=== PATIENT | male | born 1990 | race Caucasian/White ===

== ENCOUNTER 2021-06-12 14:28 | Emergency (ER) | payer MEDICAID ==
[~2021-06-12] VITALS: Ht 177.8 cm; Wt 90.7 kg
[2021-06-12] MEDS ORDERED: PROAIR DIGIHAL90 MCG INH (14:43)
[2021-06-12] MEDS ORDERED: ACID CONTROLLER20 MG PO (14:43)
[2021-06-12] MEDS ORDERED: QVAR REDIHALE10.6 GM INH (15:42)
[2021-06-12] MEDS ORDERED: PROAIR HFA8.5 GM INH (15:42)
--- NOTE | 2021-06-13 02:28 | EKG ---
[facility] [address] [facility] [address] [place], [place] [address] Signed Normal sinus rhythm with sinus arrhythmia Nonspecific T wave abnormality Abnormal ECG No previous ECGs available Confirmed by CLEOPATRA GE MD ([id number]) on 06/13/2021 2:28:00 AM Electronically Signed By: CLEOPATRA GE MD 06/13/21 0228 PATIENT NAME: MALKA BELTRAN FUNMILAYO Electrocardiogram DATE OF : 89 PHYSICIAN: CLEOPATRA GE MD REPORT #: [id number] REPORT IS CONFIDENTIAL AND NOT TO BE RELEASED WITHOUT AUTHORIZATION
== END 2021-06-12 15:56 | disposition home or self-care (01) ==
LOC: ED 14:28
DX: J45.909 Unspecified asthma, uncomplicated (principal); Z88.5 Allergy status to narcotic agent; Z79.899 Other long term (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
CPT/HCPCS: 71045; 93005; 93010; 94640; 99285-25

== ENCOUNTER 2021-07-18 13:51 | Emergency (ER) | payer SELFPAY ==
[~2021-07-18] VITALS: Ht 177.8 cm; Wt 99.8 kg
[~2021-07-18 13:51] MED LIST: ACID CONTROLLER20 MG PO; PROAIR DIGIHAL90 MCG INH; PROAIR HFA8.5 GM INH; QVAR REDIHALE10.6 GM INH
[2021-07-18] MEDS ORDERED: VENTOLIN HFA18 GM INH (15:33)
[2021-07-18] MEDS ORDERED: PREDNISONE20 MG PO (15:33)
== END 2021-07-18 15:51 | disposition home or self-care (01) ==
LOC: ED 13:51
DX: J45.901 Unspecified asthma with (acute) exacerbation (principal); F17.200 Nicotine dependence, unspecified, uncomplicated; Z88.5 Allergy status to narcotic agent; Z79.899 Other long term (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
CPT/HCPCS: 71045; 94640; 96374; 99284-25; J2930

== ENCOUNTER 2021-12-13 12:14 | Emergency (ER) | payer OTHER ==
[~2021-12-13] VITALS: Ht 177.8 cm; Wt 101.3 kg
[~2021-12-13 12:14] MED LIST changes: +PREDNISONE20 MG PO; +VENTOLIN HFA18 GM INH
[2021-12-13] MEDS ORDERED: BACTRIM DS TAB1 EACH PO (13:26)
[2021-12-13] MEDS ORDERED: HYDROCODON-ACE1 EA10 PO (13:26)
[2021-12-17] MEDS ORDERED: TRAMADOL HCL100 M2 PO (14:54)
== END 2021-12-13 13:49 | disposition home or self-care (01) ==
LOC: ED 12:14
DX: L05.01 Pilonidal cyst with abscess (principal); J45.909 Unspecified asthma, uncomplicated; F17.200 Nicotine dependence, unspecified, uncomplicated; Z88.5 Allergy status to narcotic agent; Z79.899 Other long term (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
CPT/HCPCS: 10080; 99282-25

== ENCOUNTER 2022-01-10 18:59 | Emergency (ER) | payer OTHER ==
[~2022-01-10] VITALS: Ht 177.8 cm; Wt 101.3 kg
[~2022-01-10 18:59] MED LIST changes: +BACTRIM DS TAB1 EACH PO; +HYDROCODON-ACE1 EA10 PO; +TRAMADOL HCL100 M2 PO
--- OUTSIDE RECORDS SUMMARY | 2022-01-10 19:02 | XMS ---
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 on file CRITERIA MET - - 2 Visits in 30 Days - PDMP CARE PROVIDERS STORM SANDY Nurse Practitioner: Family Current PHONE: Unknown Nikos Eng PA-C Physician Labor Gang Supervisor Current PHONE: Unknown AMANDA WOLFE [facility] Current PHONE: Unknown Care Guidelines exist for the following facilities: [facility] ( 12/08/2016 ) Care History Medical/Surgical 05/11/2017 [facility] Care Recommendation: Reason for establishing care guidelines: this patient has been identified as having at least 5 Emergency Department visits in [facility] in the 12 months immediately preceding the date these guidelines were entered. This care plan reflects only preliminary care guidelines. Providers should exercise clinical judgement when providing care. Contact your emergency department Senior Category Manager for further assistance. Primary Care Physician:Lucsa Figueroa. Please contact pts PCP and/or specialty providers for additional information on chronic conditions. Past Medical History: Asthma, Chronic Kidney Disease, GERD, MRSA Past Surgical History: Renal Biopsy Problem List: Educate patient regarding the proper use of the Emergency Room. Redirect patient to him/her PCP for care that does not require the use of the Emergency Department. Please contact your [facility] Case Management department if further intervention is needed in the care of this patient. It may be appropriate for this patient to seek care at an Urgent Care Center instead of the Emergency Room, please offer this alternate plan to the patient and provide list of Urgent Care Clinics. Substance Abuse: None Mental Health: None Pain/Opioid Agreement: Please use the [facility] BRIELLE Prescription Monitoring Program for specifics related to pts use of narcotics medications. https://secureaccess.[place].gov 05/11/2017 [facility] Care Recommendation: Reason for establishing care guidelines: this patient has been identified as having at least 5 Emergency Department visits in [facility] in the 12 months immediately preceding the date these guidelines were entered. This care plan reflects only preliminary care guidelines. Providers should exercise clinical judgement when providing care. Contact your emergency department Senior Category Manager for further assistance. Primary Care Physician:Lucas Figueroa. Please contact pts PCP and/or specialty providers for additional information on chronic conditions. Past Medical History: Asthma, Chronic Kidney Disease, GERD, MRSA Past Surgical History: Renal Biopsy Problem List: Educate patient regarding the proper use of the Emergency Room. Redirect patient to him/her PCP for care that does not require the use of the Emergency Department. Please contact your [facility] Case Management department if further intervention is needed in the care of this patient. It may be appropriate for this patient to seek care at an Urgent Care Center instead of the Emergency Room, please offer this alternate plan to the patient and provide list of Urgent Care Clinics. Substance Abuse: None Mental Health: None Pain/Opioid Agreement: Please use the [facility] Prescription Monitoring Program for specifics related to pts use of narcotics medications. [email or web address] 05/11/2017 [facility] Care Recommendation: Reason for establishing care guidelines: this patient has been identified as having at least 5 Emergency Department visits in [facility] in the 12 months immediately preceding the date these guidelines were entered. This care plan reflects only preliminary care guidelines. Providers should exercise clinical judgement when providing care. Contact your emergency department Senior Category Manager for further assistance. Primary Care Physician:Lucas Figueroa. Please contact pts PCP and/or specialty providers for additional information on chronic conditions. Past Medical History: Asthma, Chronic Kidney Disease, GERD, MRSA Past Surgical History: Renal Biopsy Problem List: Educate patient regarding the proper use of the Emergency Room. Redirect patient to him/her PCP for care that does not require the use of the Emergency Department. Please contact your [facility] Case Management department if further intervention is needed in the care of this patient. It may be appropriate for this patient to seek care at an Urgent Care Center instead of the Emergency Room, please offer this alternate plan to the patient and provide list of Urgent Care Clinics. Substance Abuse: None Mental Health: None Pain/Opioid Agreement: Please use the [facility] Prescription Monitoring Program for specifics related to pts use of narcotics medications. [email or web address].Medisas.gov E.D. VISIT COUNT (12 MO.) [address] TOTAL 6 NOTE: Visits indicate total known visits. ED/UCC VISIT TRACKING (12 MO.) 01/10/2022 19:00 [facility] [place] TYPE: Emergency COMPLAINT: - HEADACHE, N/V 12/17/2021 13:28 [facility] [place] TYPE: Emergency COMPLAINT: - SKIN PROBLEM DIAGNOSES: - Unspecified asthma, uncomplicated - Other rat exterminator (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 - Allergy status to narcotic agent - Pilonidal cyst with abscess - Nicotine dependence, unspecified, uncomplicated 12/13/2021 12:15 [facility] [place] TYPE: Emergency COMPLAINT: - LOWER BACK PAIN DIAGNOSES: - Nicotine dependence, unspecified, uncomplicated - Other specified disorders of the skin and subcutaneous tissue - Allergy status to narcotic agent - Pilonidal cyst with abscess - Other skilled nursing (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 - Unspecified asthma, uncomplicated 07/18/2021 13:52 [facility] [place] TYPE: Emergency COMPLAINT: - SOB DIAGNOSES: - Other rat exterminator (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 - Allergy status to narcotic agent - Shortness of breath - Nicotine dependence, unspecified, uncomplicated - Unspecified asthma with (acute) exacerbation 06/12/2021 14:29 [facility] [place] TYPE: Emergency COMPLAINT: - DIFFICULTY BREATHING, ACID REFLUX DIAGNOSES: - Shortness of breath - Allergy status to narcotic agent - Other skilled nursing (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 - Unspecified asthma, uncomplicated 05/24/2021 22:20 [facility] TYPE: Emergency COMPLAINT: - Shortness of breath DIAGNOSES: 1. Shortness of breath 2. Procedure and treatment not carried out because of patient's decision for unspecified reasons INPATIENT VISIT TRACKING (12 MO.) No inpatient visits to display in this time frame [id number]
== END 2022-01-10 21:53 | disposition home or self-care (01) ==
LOC: ED 18:59
DX: B34.9 Viral infection, unspecified (principal); J45.909 Unspecified asthma, uncomplicated; F17.200 Nicotine dependence, unspecified, uncomplicated; Z79.899 Other long term (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; Z88.5 Allergy status to narcotic agent; Z20.822 Contact with and (suspected) exposure to COVID-19
CPT/HCPCS: 99284; U0003

== ENCOUNTER 2022-03-22 15:43 | Emergency (ER) | payer OTHER ==
[~2022-03-22] VITALS: Ht 177.8 cm; Wt 99.9 kg
== END 2022-03-22 17:13 | disposition home or self-care (01) ==
LOC: ED 15:43
DX: M72.2 Plantar fascial fibromatosis (principal); J45.909 Unspecified asthma, uncomplicated; Z88.5 Allergy status to narcotic agent; F17.200 Nicotine dependence, unspecified, uncomplicated; Z79.899 Other long term (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
CPT/HCPCS: 99283

== ENCOUNTER 2022-04-06 01:19 | Emergency (ER) | payer OTHER ==
[~2022-04-06] VITALS: Ht 177.8 cm; Wt 94.4 kg
--- OUTSIDE RECORDS SUMMARY | 2022-04-06 01:22 | XMS ---
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 Security Events currently on file CRITERIA MET - [facility] - 2 Visits in 30 Days CARE PROVIDERS STORM SANDY Nurse Practitioner: Family Current PHONE: Unknown Nikos Eng PA-C Physician Pastrycook'S Assistant Current PHONE: Unknown AMANDA WOLFE [facility] Current PHONE: Unknown Care Guidelines exist for the following facilities: [facility] ( 12/08/2016 ) Care History Medical/Surgical 05/11/2017 [facility] Care Recommendation: Reason for establishing care guidelines: this patient has been identified as having at least 5 Emergency Department visits in [facility] in the 12 months immediately preceding the date these guidelines were entered. This care plan reflects only preliminary care guidelines. Providers should exercise clinical judgement when providing care. Contact your emergency department Director Of Federal Sales for further assistance. Primary Care Physician:Lucas Figueroa. [...] of the Emergency Department. Please contact your [facility] Case Management department if further intervention is needed in the care of this patient. It may be appropriate for this patient to seek care at an Urgent Care Center instead of the Emergency Room, please offer this alternate plan to the patient and provide list of Urgent Care Clinics. Substance Abuse: None Mental Health: None Pain/Opioid Agreement: Please use the [facility] BRIELLE Prescription Monitoring Program for specifics related to pts use of narcotics medications. https://secureaccess.[place].gov 05/11/2017 [facility] Care Recommendation: Reason for establishing care guidelines: this patient has been identified as having at least 5 Emergency Department visits in [facility] in the 12 months immediately preceding the date these guidelines were entered. This care plan reflects only preliminary care guidelines. Providers should exercise clinical judgement when providing care. Contact your emergency department Director Of Federal Sales for further assistance. Primary Care Physician:Lucas Figueroa. [...] the Emergency Department. Please contact your [facility] Case Management department if further intervention is needed in the care of this patient. It may be appropriate for this patient to seek care at an Urgent Care Center instead of the Emergency Room, please offer this alternate plan to the patient and provide list of Urgent Care Clinics. Substance Abuse: None Mental Health: None Pain/Opioid Agreement: Please use the [facility] Prescription Monitoring Program for specifics related to pts use of narcotics medications. [email or web address] [email or web address] [email or web address].[email or web address] Technologies 05/11/2017 [facility] Care Recommendation: Reason for establishing care guidelines: this patient has been identified as having at least 5 Emergency Department visits in [facility] in the 12 months immediately preceding the date these guidelines were entered. This care plan reflects only preliminary care guidelines. Providers should exercise clinical judgement when providing care. Contact your emergency department Director Of Federal Sales for further assistance. Primary Care Physician:Lucas Figueroa. [...] the Emergency Department. Please contact your [facility] Case Management department if further intervention is needed in the care of this patient. It may be appropriate for this patient to seek care at an Urgent Care Center instead of the Emergency Room, please offer this alternate plan to the patient and provide list of Urgent Care Clinics. Substance Abuse: None Mental Health: None Pain/Opioid Agreement: Please use the [facility] Prescription Monitoring Program for specifics related to pts use of narcotics medications. [email or web address]://TC [email or web address] Cream.Lockbox.gov E.D. VISIT COUNT (12 MO.) [address] [facility] NOTE: Visits indicate total known visits. ED/UCC VISIT TRACKING (12 MO.) 04/06/2022 01:20 [facility] [place] TYPE: Emergency COMPLAINT: - BACK PAIN 03/22/2022 15:45 [facility] [place] TYPE: Emergency COMPLAINT: - BOTTOMS OF BOTH FEET HURT, DIZZY, NAUSEA DIAGNOSES: - Plantar fascial fibromatosis - Pain in right foot - Nicotine dependence, unspecified, uncomplicated - Allergy status to narcotic agent - Unspecified asthma, uncomplicated - Other vermin exterminator (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 01/10/2022 19:00 [facility] [place] TYPE: Emergency COMPLAINT: - HEADACHE, N/V DIAGNOSES: - Nicotine dependence, unspecified, uncomplicated - Unspecified asthma, uncomplicated - Headache, unspecified - Allergy status to narcotic agent - Contact with and (suspected) exposure to COVID-19 - Other custodial (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 - Viral infection, unspecified 12/17/2021 13:28 [facility] [place] TYPE: Emergency COMPLAINT: - SKIN PROBLEM DIAGNOSES: - Unspecified asthma, uncomplicated - Other vermin exterminator (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 - Allergy status to narcotic agent - Pilonidal cyst with abscess - Nicotine dependence, unspecified, uncomplicated 12/13/2021 12:15 [facility] [place] TYPE: Emergency COMPLAINT: - LOWER BACK PAIN DIAGNOSES: - Nicotine dependence, unspecified, uncomplicated - Other specified disorders of the skin and subcutaneous tissue - Allergy status to narcotic agent - Pilonidal cyst with abscess - Other vermin exterminator (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 - Unspecified asthma, uncomplicated 07/18/2021 13:52 [facility] [place] TYPE: Emergency COMPLAINT: - SOB DIAGNOSES: - Other vermin exterminator (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 - Allergy status to narcotic agent - Shortness of breath - Nicotine dependence, unspecified, uncomplicated - Unspecified asthma with (acute) exacerbation 06/12/2021 14:29 [facility] TYPE: Emergency COMPLAINT: - DIFFICULTY BREATHING, ACID REFLUX DIAGNOSES: - Shortness of breath - Allergy status to narcotic agent - Other custodial (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 - Unspecified asthma, uncomplicated 05/24/2021 22:20 [facility] TYPE: Emergency COMPLAINT: - Shortness of breath DIAGNOSES: 1. Shortness of breath 2. Procedure and treatment not carried out because of patient's decision for unspecified reasons INPATIENT VISIT TRACKING (12 MO.) No inpatient visits to display in this time frame [id number]
[2022-04-06] MEDS ORDERED: ULTRAM50 MG PO (01:38)
[2022-04-06] MEDS ORDERED: AMOX TR-K CLV1 EAC1 PO (01:38)
== END 2022-04-06 01:45 | disposition home or self-care (01) ==
LOC: ED 01:19
DX: L05.01 Pilonidal cyst with abscess (principal); J45.909 Unspecified asthma, uncomplicated; F17.200 Nicotine dependence, unspecified, uncomplicated; Z88.5 Allergy status to narcotic agent; Z79.899 Other long term (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
CPT/HCPCS: 99282; A9270

== ENCOUNTER 2022-05-09 14:09 | Emergency (ER) | payer OTHER ==
[~2022-05-09] VITALS: Ht 177.8 cm; Wt 94.3 kg
[~2022-05-09 14:09] MED LIST changes: +AMOX TR-K CLV1 EAC1 PO; +ULTRAM50 MG PO
== END 2022-05-09 15:53 | disposition home or self-care (01) ==
LOC: ED 14:09
DX: S61.211A Laceration without foreign body of left index finger without damage to nail, initial encounter (principal); W26.9XXA Contact with unspecified sharp object(s), initial encounter; Y99.0 Civilian activity done for income or pay; J45.909 Unspecified asthma, uncomplicated; F17.200 Nicotine dependence, unspecified, uncomplicated; Z88.5 Allergy status to narcotic agent; Z79.899 Other long term (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
CPT/HCPCS: 99282

== ENCOUNTER 2022-05-11 20:59 | Emergency (ER) | payer OTHER ==
[~2022-05-11] VITALS: Ht 177.8 cm; Wt 94.4 kg
[2022-05-11] MEDS ORDERED: AMOX TR-K CLV1 EAC1 PO (23:34)
== END 2022-05-12 | disposition home or self-care (01) ==
LOC: ED 20:59
DX: Z48.00 Encounter for change or removal of nonsurgical wound dressing (principal); F17.200 Nicotine dependence, unspecified, uncomplicated; Z88.5 Allergy status to narcotic agent; Z79.899 Other long term (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
CPT/HCPCS: 36415; 73140; 85025; 85651; 86140; J0690

== ENCOUNTER 2022-08-21 20:47 | Emergency (ER) | payer OTHER ==
[~2022-08-21] VITALS: Ht 177.8 cm; Wt 90.7 kg
--- OUTSIDE RECORDS SUMMARY | 2022-08-21 20:50 | XMS ---
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 Security Events currently on file CRITERIA MET - PDMP CARE PROVIDERS STORM SANDY Nurse Practitioner: Family Current PHONE: Unknown Nikos Eng PA-C Physician Group Managing Director Current PHONE: Unknown AMANDA WOLFE [facility] Current PHONE: Unknown Care Guidelines exist for the following facilities: [facility] ( 12/08/2016 ) Care History Medical/Surgical 05/11/2017 [facility] Care Recommendation: Reason for establishing care guidelines: this patient has been identified as having at least 5 Emergency Department visits in [facility] in the 12 months immediately preceding the date these guidelines were entered. This care plan reflects only preliminary care guidelines. Providers should exercise clinical judgement when providing care. Contact your emergency department Convention Manager for further assistance. Primary Care Physician:Lucas [...] of the Emergency Department. Please contact your [facility] Case Management department if further intervention is needed in the care of this patient. It may be appropriate for this patient to seek care at an Urgent Care Center instead of the Emergency Room, please offer this alternate plan to the patient and provide list of Urgent Care Clinics. Substance Abuse: None Mental Health: None Pain/Opioid Agreement: Please use the [facility] BRIELLE Prescription Monitoring Program for specifics related to pts use of narcotics medications. https://secureaccess.or.gov 05/11/2017 [facility] Care Recommendation: Reason for establishing care guidelines: this patient has been identified as having at least 5 Emergency Department visits in [facility] in the 12 months immediately preceding the date these guidelines were entered. This care plan reflects only preliminary care guidelines. Providers should exercise clinical judgement when providing care. Contact your emergency department Convention Manager for further assistance. Primary Care Physician:Lucas [...] of the Emergency Department. Please contact your [facility] Case Management department if further intervention is needed in the care of this patient. It may be appropriate for this patient to seek care at an Urgent Care Center instead of the Emergency Room, please offer this alternate plan to the patient and provide list of Urgent Care Clinics. Substance Abuse: None Mental Health: None Pain/Opioid Agreement: Please use the [facility] Prescription Monitoring Program for specifics related to pts use of narcotics medications. [email or web address] Fans 05/11/2017 [facility] Care Recommendation: Reason for establishing care guidelines: this patient has been identified as having at least 5 Emergency Department visits in [facility] in the 12 months immediately preceding the date these guidelines were entered. This care plan reflects only preliminary care guidelines. Providers should exercise clinical judgement when providing care. Contact your emergency department Convention Manager for further assistance. Primary Care Physician:Lucas [...] of the Emergency Department. Please contact your [facility] Case Management department if further intervention is needed in the care of this patient. It may be appropriate for this patient to seek care at an Urgent Care Center instead of the Emergency Room, please offer this alternate plan to the patient and provide list of Urgent Care Clinics. Substance Abuse: None Mental Health: None Pain/Opioid Agreement: Please use the [facility] Prescription Monitoring Program for specifics related to pts use of narcotics medications. [email or web address].gov E.D. VISIT COUNT (12 MO.) [address] [facility] [place] [place] TOTAL 8 NOTE: Visits indicate total known visits. ED/UCC VISIT TRACKING (12 MO.) 08/21/2022 20:48 [facility] [place] TYPE: Emergency COMPLAINT: - BODY ACHES, FLU SYMPTOMS 05/11/2022 20:59 [facility] [place] TYPE: Emergency COMPLAINT: - WOUND CARE DIAGNOSES: - Allergy status to narcotic agent - Other long wall shear operator (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 - Nicotine dependence, unspecified, uncomplicated - Encounter for change or removal of nonsurgical wound dressing 05/09/2022 14:09 [facility] [place] TYPE: Emergency COMPLAINT: - L INDEX FINGER LACERATION DIAGNOSES: - Contact with unspecified sharp object(s), initial encounter - Other snf (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 - Nicotine dependence, unspecified, uncomplicated - Civilian activity done for income or pay - Unspecified asthma, uncomplicated - Allergy status to narcotic agent - Laceration without foreign body of left index finger without damage to nail, initial encounter 04/06/2022 01:20 [facility] [place] TYPE: Emergency COMPLAINT: - BACK PAIN DIAGNOSES: - Unspecified asthma, uncomplicated - Pilonidal cyst with abscess - Nicotine dependence, unspecified, uncomplicated - Other long wall shear operator (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 - Allergy status to narcotic agent 03/22/2022 15:45 [facility] [place] TYPE: Emergency COMPLAINT: - BOTTOMS OF BOTH FEET HURT, DIZZY, NAUSEA DIAGNOSES: - Other snf (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 - Allergy status to narcotic agent - Pain in right foot - Unspecified asthma, uncomplicated - Nicotine dependence, unspecified, uncomplicated - Plantar fascial fibromatosis 01/10/2022 19:00 [facility] [place] TYPE: Emergency COMPLAINT: - HEADACHE, N/V DIAGNOSES: - Other snf (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 - Allergy status to narcotic agent - Unspecified asthma, uncomplicated - Viral infection, unspecified - Contact with and (suspected) exposure to COVID-19 - Headache, unspecified - Nicotine dependence, unspecified, uncomplicated 12/17/2021 13:28 [facility] [place] TYPE: Emergency COMPLAINT: - SKIN PROBLEM DIAGNOSES: - Pilonidal cyst with abscess - Other snf (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 - Nicotine dependence, unspecified, uncomplicated - Allergy status to narcotic agent - Unspecified asthma, uncomplicated 12/13/2021 12:15 [facility] [place] TYPE: Emergency COMPLAINT: - LOWER BACK PAIN DIAGNOSES: - Unspecified asthma, uncomplicated - Pilonidal cyst with abscess - Other specified disorders of the skin and subcutaneous tissue - Other snf (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 - Allergy status to narcotic agent - Nicotine dependence, unspecified, uncomplicated INPATIENT VISIT TRACKING (12 MO.) No inpatient visits to display in this time frame [id number]
[2022-08-21] MEDS ORDERED: FLUTICASONE-SA1 EAC5 (20:58)
[2022-08-21] MEDS ORDERED: CYCLOBENZAPRINE10 MG PO (22:05)
[2022-08-21] MEDS ORDERED: BENZONATATE100 MG PO (22:05)
== END 2022-08-21 22:29 | disposition home or self-care (01) ==
LOC: ED 20:47
DX: B34.9 Viral infection, unspecified (principal); J45.909 Unspecified asthma, uncomplicated; F17.200 Nicotine dependence, unspecified, uncomplicated; Z20.822 Contact with and (suspected) exposure to COVID-19; Z88.5 Allergy status to narcotic agent; Z88.6 Allergy status to analgesic agent; Z79.899 Other long term (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
CPT/HCPCS: 87502; 96372; 99283; A9270; C9803; J1885; U0003

== ENCOUNTER 2022-09-28 22:16 | Emergency (ER) | payer OTHER ==
[~2022-09-28] VITALS: Ht 177.8 cm; Wt 97.0 kg
[~2022-09-28 22:16] MED LIST changes: +BENZONATATE100 MG PO; +CYCLOBENZAPRINE10 MG PO; +FLUTICASONE-SA1 EAC5
--- OUTSIDE RECORDS SUMMARY | 2022-09-28 22:20 | XMS ---
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 ( 12/08/2016 ) Care History Medical/Surgical 05/11/2017 [facility] Care Recommendation: Reason for establishing care guidelines: this patient has been identified as having at least 5 Emergency Department visits in [facility] in the 12 months immediately preceding the date these guidelines were entered. This care plan reflects only preliminary care guidelines. Providers should exercise clinical judgement when providing care. Contact your emergency department Registered Health Nurse for further assistance. Primary Care Physician:Lucas Figueroa. [...] of the Emergency Department. Please contact your [facility] Case Management department if further intervention is needed in the care of this patient. It may be appropriate for this patient to seek care at an Urgent Care Center instead of the Emergency Room, please offer this alternate plan to the patient and provide list of Urgent Care Clinics. Substance Abuse: None Mental Health: None Pain/Opioid Agreement: Please use the [facility] Prescription Monitoring Program for specifics related to pts use of narcotics medications. https://secureaccess.[place].gov 05/11/2017 [facility] Care Recommendation: Reason for establishing care guidelines: this patient has been identified as having at least 5 Emergency Department visits in [facility] in the 12 months immediately preceding the date these guidelines were entered. This care plan reflects only preliminary care guidelines. Providers should exercise clinical judgement when providing care. Contact your emergency department Registered Health Nurse for further assistance. Primary Care Physician:Lucas Figueroa. [...] of the Emergency Department. Please contact your [facility] Case Management department if further intervention is needed in the care of this patient. It may be appropriate for this patient to seek care at an Urgent Care Center instead of the Emergency Room, please offer this alternate plan to the patient and provide list of Urgent Care Clinics. Substance Abuse: None Mental Health: None Pain/Opioid Agreement: Please use the [facility] Prescription Monitoring Program for specifics related to pts use of narcotics medications. https://Flextrip.[employer]mex.[employer] 05/11/2017 [facility] Care Recommendation: Reason for establishing care guidelines: this patient has been identified as having at least 5 Emergency Department visits in [facility] in the 12 months immediately preceding the date these guidelines were entered. This care plan reflects only preliminary care guidelines. Providers should exercise clinical judgement when providing care. Contact your emergency department Registered Health Nurse for further assistance. Primary Care Physician:Lucas Figueroa. [...] of the Emergency Department. Please contact your [facility] Case Management department if further intervention is needed in the care of this patient. It may be appropriate for this patient to seek care at an Urgent Care Center instead of the Emergency Room, please offer this alternate plan to the patient and provide list of Urgent Care Clinics. Substance Abuse: None Mental Health: None Pain/Opioid Agreement: Please use the [facility] Prescription Monitoring Program for specifics related to pts use of narcotics medications. https://Flextrip.Satmex.gov E.D. VISIT COUNT (12 MO.) Nelson Guerin TOTAL 10 NOTE: Visits indicate total known visits. ED/UCC VISIT TRACKING (12 MO.) 09/28/2022 22:17 [facility] TYPE: Emergency COMPLAINT: - EAR PAIN 09/28/2022 12:07 [facility] TYPE: Emergency COMPLAINT: - EAR PAIN/PROBLEM 08/21/2022 20:48 [facility] TYPE: Emergency COMPLAINT: - BODY ACHES, FLU SYMPTOMS DIAGNOSES: - Allergy status to analgesic agent - Other nursing home (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 - Allergy status to narcotic agent - Viral infection, unspecified - Nicotine dependence, unspecified, uncomplicated - Contact with and (suspected) exposure to COVID-19 - Acute pharyngitis, unspecified - Unspecified asthma, uncomplicated 05/11/2022 20:59 [facility] TYPE: Emergency COMPLAINT: - WOUND CARE DIAGNOSES: - Other terminal operations 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 (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 - Nicotine dependence, unspecified, uncomplicated - Encounter for change or removal of nonsurgical wound dressing - Allergy status to narcotic agent 05/09/2022 14:09 [facility] TYPE: Emergency COMPLAINT: - L INDEX FINGER LACERATION DIAGNOSES: - Nicotine dependence, unspecified, uncomplicated - Civilian activity done for income or pay - Unspecified asthma, uncomplicated - Allergy status to narcotic agent - Laceration without foreign body of left index finger without damage to nail, initial encounter - Contact with unspecified sharp object(s), initial encounter - Other nursing home (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 04/06/2022 01:20 [facility] TYPE: Emergency COMPLAINT: - BACK PAIN DIAGNOSES: - Pilonidal cyst with abscess - Nicotine dependence, unspecified, uncomplicated - Other nursing home (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 - Allergy status to narcotic agent - Unspecified asthma, uncomplicated 03/22/2022 15:45 [facility] TYPE: Emergency COMPLAINT: - BOTTOMS OF BOTH FEET HURT, DIZZY, NAUSEA DIAGNOSES: - Pain in right foot - Unspecified asthma, uncomplicated - Nicotine dependence, unspecified, uncomplicated - Plantar fascial fibromatosis - Other nursing home (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 - Allergy status to narcotic agent 01/10/2022 19:00 [facility] TYPE: Emergency COMPLAINT: - HEADACHE, N/V DIAGNOSES: - Unspecified asthma, uncomplicated - Viral infection, unspecified - Contact with and (suspected) exposure to COVID-19 - Headache, unspecified - Nicotine dependence, unspecified, uncomplicated - Other nursing home (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 - Allergy status to narcotic agent 12/17/2021 13:28 [facility] TYPE: Emergency COMPLAINT: - SKIN PROBLEM DIAGNOSES: - Other terminal operations supervisor (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 - Nicotine dependence, unspecified, uncomplicated - Allergy status to narcotic agent - Unspecified asthma, uncomplicated - Pilonidal cyst with abscess 12/13/2021 12:[address] [facility] [place] TYPE: Emergency COMPLAINT: - LOWER BACK PAIN DIAGNOSES: - Other specified disorders of the skin and subcutaneous tissue - Other terminal operations supervisor (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 - Allergy status to narcotic agent - Nicotine dependence, unspecified, uncomplicated - Unspecified asthma, uncomplicated - Pilonidal cyst with abscess INPATIENT VISIT TRACKING (12 MO.) No inpatient visits to display in this time frame [email or web address]
[2022-09-28] MEDS ORDERED: FLONASE ALLERG9.9 ML NAS (23:06)
== END 2022-09-28 23:14 | disposition home or self-care (01) ==
LOC: ED 22:16
DX: H68.013 Acute Eustachian salpingitis, bilateral (principal); J45.909 Unspecified asthma, uncomplicated; F17.200 Nicotine dependence, unspecified, uncomplicated; Z88.5 Allergy status to narcotic agent; Z79.899 Other long term (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
CPT/HCPCS: 99282

== ENCOUNTER 2023-02-20 17:29 | Emergency (ER) | payer OTHER ==
[~2023-02-20] VITALS: Ht 177.8 cm; Wt 93.2 kg
[~2023-02-20 17:29] MED LIST changes: +FLONASE ALLERG9.9 ML NAS
[2023-02-20] MEDS ORDERED: METRONIDAZOLE500 MG PO (19:16)
[2023-02-20] MEDS ORDERED: CEPHALEXIN500 MG PO (19:16)
[2023-02-20 19:45] VITALS: BP 127/87
== END 2023-02-20 19:47 | disposition home or self-care (01) ==
LOC: ED 17:29
DX: L05.91 Pilonidal cyst without abscess (principal); J45.909 Unspecified asthma, uncomplicated; F17.200 Nicotine dependence, unspecified, uncomplicated; Z88.5 Allergy status to narcotic agent; Z79.899 Other long term (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
CPT/HCPCS: 99283

== ENCOUNTER 2023-04-29 20:50 | Emergency (ER) | payer OTHER ==
[~2023-04-29] VITALS: Ht 177.8 cm; Wt 89.4 kg
--- OUTSIDE RECORDS SUMMARY | ~2023-04-29 | XMS | Continuity of Care Document ---
Demographics + + + | Address | [address] | | | [place] [address] | + + + | Preferred Language | Unknown | + + + | Marital Status | Never | + + + | Druze Affiliation | Unknown | + + + | Race | White | + + + | Ethnic Group | Not or | + + + Author + + + | Author | [facility] | + + + | Organization | [facility] | + + + | Address | [address] | | | [place] [address] | + + + | Phone | | + + + Care Team Providers + + + + | Care Overedger Name | Role | Phone | + + + + Unavailable | Unavailable | + + + + Unavailable | Unavailable | + + + + Unavailable | Unavailable | + + + + Unavailable | Unavailable | + + + + Unavailable | Unavailable | + + + + Unavailable | Unavailable | + + + + Allergies and Intolerances + + + + + + | date | description | facility | reaction | severity | + + + + + + | (no date) | Hydromorphone | [facility] | (no reaction) | (no severity) | [facility] | | | + + + + + + | (no date) | hydromorphone | [facility] | (no reaction) | (no severity) | | [facility] | | | + + + + + + | (no date) | Morphine | [facility] | (no reaction) | (no severity) | | [facility] | | | + + + + + + | (no date) | Hydromorphone | [facility] | (no reaction) | (no severity) | | [facility] | | | + + + + + + | (no date) | Hallucinations | [facility] | (no reaction) | (no severity) | | [facility] | | | + + + + + + | (no date) | Morphine | [facility] | (no reaction) | (no severity) | | [facility] | | | + + + + + + | (no date) | morphine | [facility] | (no reaction) | (no severity) | | | [facility] | | | + + + + + + | (no date) | Morphine | [facility] | (no reaction) | (no severity) | | [facility] | | | + + + + + + | (no date) | Hydromorphone | [facility] | (no reaction) | (no severity) | | [facility] | | | + + + + + + Encounters No information. Functional Status No information. Immunizations + + + + | date | description | facility | + + + + | 2023-02-20 00:00 | No vaccine administered | [facility] | + + + + Medications + + + + | date | description | facility | + + + + | 2022-08-21 00:00 | Fluticasone | [facility] | | | Propion/Salmeterol | | + + + + | 2022-09-28 00:00 | Fluticasone | [facility] | | | Propion/Salmeterol | | + + + + | 2022-09-28 00:00 | Fluticasone | [facility] | | | Propion/Salmeterol | | + + + + | 2023-02-20 00:00 | Fluticasone | [facility] | | | Propion/Salmeterol | | + + + + | 2023-02-20 00:00 | fluticasone propionate 0.5 | [facility] | | | MG/ACTUAT / salmeterol | | | | 0.05 MG/AC | | + + + + | 2022-09-28 00:00 | FLUTICASONE PROPIONATE | [facility] | + + + + | 2022-08-21 00:00 | BENZONATATE | [facility] | + + + + | 2022-08-21 00:00 | BENZONATATE | [facility] | + + + + | 2022-08-21 00:00 | BENZONATATE | [facility] | + + + + | 2021-06-12 00:00 | Beclomethasone | [facility] | | | Dipropionate | | + + + + | 2021-06-12 00:00 | Beclomethasone | [facility] | | | Dipropionate | | + + + + | 2021-06-12 00:00 | Beclomethasone | [facility] | | | Dipropionate | | + + + + | 2021-06-12 00:00 | Beclomethasone | [facility] | | | Dipropionate | | + + + + | 2021-06-12 00:00 | Breath-Actuated 120 ACTUAT | [facility] | | | beclomethasone | | | | dipropionate 0.04 | | + + + + | 2022-04-18 00:00 | Albuterol Sulfate | [facility] | + + + + | 2022-05-09 00:00 | Albuterol Sulfate | [facility] | + + + + | 2022-08-21 00:00 | Albuterol Sulfate | [facility] | + + + + | 2022-09-28 00:00 | Albuterol Sulfate | [facility] | + + + + | 2022-09-28 00:00 | Albuterol Sulfate | [facility] | + + + + | 2023-02-20 00:00 | Albuterol Sulfate | [facility] | + + + + | 2023-02-20 00:00 | Sensor 200 ACTUAT | [facility] | | | albuterol 0.09 MG/ACTUAT | | | | Dry Powder Inhale | | + + + + | 2023-02-20 00:00 | CEPHALEXIN | [facility] | + + + + | 2023-02-20 00:00 | cephalexin 500 MG Oral | [facility] | | | Capsule | | + + + + | 2022-04-18 00:00 | FAMOTIDINE | [facility] | + + + + | 2022-05-09 00:00 | FAMOTIDINE | [facility] | + + + + | 2022-08-21 00:00 | FAMOTIDINE | [facility] | + + + + | 2022-09-28 00:00 | FAMOTIDINE | [facility] | + + + + | 2022-09-28 00:00 | FAMOTIDINE | [facility] | + + + + | 2023-02-20 00:00 | FAMOTIDINE | [facility] | + + + + | 2023-02-20 00:00 | famotidine 20 MG Oral | [facility] | | | Tablet | | + + + + | 2023-02-20 00:00 | METRONIDAZOLE | [facility] | + + + + | 2023-02-20 00:00 | metronidazole 500 MG Oral | [facility] | | | Tablet | | + + + + | 2021-07-18 00:00 | predniSONE | [facility] | + + + + | 2021-07-18 00:00 | predniSONE | [facility] | + + + + | 2021-07-18 00:00 | predniSONE | [facility] | + + + + | 2021-07-18 00:00 | predniSONE | [facility] | + + + + | 2021-07-18 00:00 | prednisone 20 MG Oral | [facility] | | | Tablet | | + + + + | 2022-04-06 00:00 | AMOXICILLIN/POTASSIUM CLAV | [facility] | | | | | + + + + | 2022-05-11 00:00 | AMOXICILLIN/POTASSIUM CLAV | [facility] | | | | | + + + + | 2022-05-11 00:00 | AMOXICILLIN/POTASSIUM CLAV | [facility] | | | | | + + + + | 2022-05-11 00:00 | AMOXICILLIN/POTASSIUM CLAV | [facility] | | | | | + + + + | 2022-05-11 00:00 | amoxicillin 875 MG / | [facility] | | | clavulanate 125 MG Oral | | | | Tablet | | + + + + | 2022-08-21 00:00 | CYCLOBENZAPRINE HCL | [facility] | + + + + | 2022-08-21 00:00 | CYCLOBENZAPRINE HCL | [facility] | + + + + | 2022-04-06 00:00 | TRAMADOL HCL | [facility] | + + + + | 2022-04-06 00:00 | TRAMADOL HCL | [facility] | + + + + | 2022-04-06 00:00 | TRAMADOL HCL | [facility] | + + + + | 2022-04-06 00:00 | TRAMADOL HCL | [facility] | + + + + | 2022-04-06 00:00 | tramadol hydrochloride 50 | [facility] | | | MG Oral Tablet [Ultram] | | + + + + | 2021-07-18 00:00 | ALBUTEROL SULFATE | [facility] | + + + + | 2021-07-18 00:00 | ALBUTEROL SULFATE | [facility] | + + + + | 2021-07-18 00:00 | ALBUTEROL SULFATE | [facility] | + + + + | 2021-07-18 00:00 | ALBUTEROL SULFATE | [facility] | + + + + | 2021-07-18 00:00 | [id number] ACTUAT | [facility] | | | albuterol 0.09 MG/ACTUAT | | | | Metered Dose I | | + + + + Problems + + + + | date | description | facility | + + + + | 2021-06-12 00:00 | Asthma attack | [facility] | + + + + | 2021-06-12 00:00 | Exacerbation of asthma | [facility] | + + + + | 2021-06-12 00:00 | Exacerbation of asthma | [facility] | + + + + | 2021-06-12 00:00 | Exacerbation of asthma | [facility] | + + + + | 2021-06-12 00:00 | Exacerbation of asthma | [facility] | + + + + | 2021-12-13 00:00 | Pilonidal cyst with | [facility] | | | abscess | | + + + + | 2021-12-13 00:00 | Pilonidal cyst with | [facility] | | | abscess | | + + + + | 2021-12-13 00:00 | Pilonidal cyst with | [facility] | | | abscess | | + + + + | 2021-12-13 00:00 | Pilonidal cyst with | [facility] | | | abscess | | + + + + | 2021-12-17 00:00 | 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 | | + + + + | 2021-12-17 00:00 | 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 | | + + + + | 2021-12-17 00:00 | Pilonidal abscess of | [facility] | | | cleft | | + + + + | 2021-12-17 00:00 | 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 | | + + + + | 2022-01-10 00:00 | Viral syndrome | [facility] | + + + + | 2022-01-10 00:00 | Viral infection | [facility] | + + + + | 2022-01-10 00:00 | Viral infection | [facility] | + + + + | 2022-01-10 00:00 | Viral infection | [facility] | + + + + | 2022-01-10 00:00 | Viral infection | [facility] | + + + + | 2022-03-22 00:00 | Plantar fasciitis | [facility] | + + + + | 2022-03-22 00:00 | Plantar fasciitis | [facility] | + + + + | 2022-03-22 00:00 | Plantar fasciitis | [facility] | + + + + | 2022-03-22 00:00 | Plantar fasciitis | [facility] | + + + + | 2022-05-11 00:00 | Encounter for | [facility] | | | post-traumatic wound check | | + + + + | 2022-05-11 00:00 | Encounter for | [facility] | | | post-traumatic wound check | | + + + + | 2022-05-11 00:00 | Encounter for | [facility] | | | post-traumatic wound check | | + + + + | 2022-09-28 00:00 | Acute salpingitis of | [facility] | | | eustachian tube | | + + + + | 2022-09-28 00:00 | Acute salpingitis of | [facility] | | | eustachian tube | | + + + + | 2022-09-28 00:00 | Patient left without being | [facility] | | | seen | | + + + + | 2022-09-28 00:00 | Patient left without being | [facility] | | | seen | | + + + + | 2022-09-28 22:17 | NICOTINE DEPENDENCE, | [facility] | | | UNSPECIFIED, UNCOMPLICATED | | + + + + | 2022-09-28 22:17 | ACUTE EUSTACHIAN | [facility] | | | SALPINGITIS, BILATERAL | | + + + + | 2022-09-28 22:17 | UNSPECIFIED ASTHMA, | [facility] | | | UNCOMPLICATED | | + + + + | 2022-09-28 22:17 | NAUSEA | [facility] | + + + + | 2022-09-28 22:17 | OTHER SHELTER (CURRENT) | [facility] | | | DRUG THERAPY | | + + + + | 2022-09-28 22:17 | ALLERGY STATUS TO NARCOTIC | [facility] | | | AGENT STATUS | | + + + + | 2023-02-20 00:00 | Sacrococcygeal pilonidal | [facility] | | | cyst | | + + + + | 2023-02-20 00:00 | Sacrococcygeal pilonidal | [facility] | | | cyst | | + + + + Procedures No information. Results/Labs +--------+--------+ +---------+--------+---------+ | test | date | facility | value | unit | notes | +--------+--------+ +---------+--------+---------+ + + | Result panel 1 | + + + + + + + + + | | 2022-01-10 | [facility] | NEGATIVE | (missing) | (missing) | | (unavailable | 20:49 [facility] | | | | + + + + + + + + + | Result panel 2 | + + + + + + + + + | | 2022-01-10 | [facility] | NEGATIVE | (missing) | (missing) | | (unavailable | 20:49 | [facility] | | | | + + + + + + + + + | Result panel 3 | + + + + + + + + + | | 2022-01-10 | [facility] | NEGATIVE | (missing) | (missing) | | (unavailable | 20:49 [facility] | | | | + + + + + + + + + | Result panel 4 | + + + + + + + + + | | 2022-01-10 | [facility] | NEGATIVE | (missing) | (missing) | | (unavailable | 20:49 [facility] | | | | + + + + + + + + + | Result panel 5 | + + + + + + + + + | | 2022-01-10 | [facility] | NEGATIVE | (missing) | (missing) | | (unavailable | 20:49 [facility] | | | | + + + + + + + + + | Result panel 6 | + + + + + + + + + | | 2022-01-10 | [facility] | NEGATIVE | (missing) | (missing) | | (unavailable | 20:49 [facility] | | | | + + + + + + + + + | Result panel 7 | + + + + + + + + + | | 2022-01-10 | [facility] | NEGATIVE | (missing) | (missing) | | (unavailable | 20:49 [facility] | | | | + + + + + + + + + | Result panel 8 | + + + + + + + + + | | 2022-01-10 | [facility] | NEGATIVE | (missing) | (missing) | | (unavailable | 20:49 [facility] | | | | + + + + + + + + + | Result panel 9 | + + + + + + + + + | | 2022-08-21 | [facility] | NEGATIVE | (missing) | (missing) | | (unavailable | 21:10 | [facility] | | | | + + + + + + + + + | Result panel 10 | + + + + + + + + + | | 2022-08-21 | [facility] | NEGATIVE | (missing) | (missing) | | (unavailable | 21:10 [facility] | | | | + + + + + + + + + | Result panel 11 | + + + + + + + + + | | 2022-08-21 | [facility] | NEGATIVE | (missing) | (missing) | | (unavailable | 21:10 [facility] | | | | + + + + + + + + + | Result panel 12 | + + + + + + + + + | | 2022-08-21 | [facility] | NEGATIVE | (missing) | (missing) | | (unavailable | 21:10 | [facility] | | | | + + + + + + + Social History + + + + | date | description | facility | + + + + | 2023-02-20 00:00 | [facility] | + + + + Vital Signs + + + +---------+ | date | measurement | value | units | + + + +---------+ | 2021-12-13 00:00 | BMI | 32.0 | kg/m2 | + + + +---------+ | 2021-12-13 00:00 | BP_diastolic | 53 | mmHg | + + + +---------+ | 2021-12-13 00:00 | BP_systolic | 101 | mmHg | + + + +---------+ | 2021-12-13 00:00 | heart_rate | 90 | /min | + + + +---------+ | 2021-12-13 00:00 | height_metric | 177.8 | cm | + + + +---------+ | 2021-12-13 00:00 | height_standard | 70 | in | + + + +---------+ | 2021-12-13 00:00 | o2_saturation | 97 | % | + + + +---------+ | 2021-12-13 00:00 | respiration_rate | 16 | /min | + + + +---------+ | 2021-12-13 00:00 | temperature_metric | 36.56 | C | | | | | | + + + +---------+ | 2021-12-13 00:00 | | 97.8 | F | | | temperature_standar | | | | | d | | | + + + +---------+ | 2021-12-13 00:00 | weight_metric | 101.3 | kg | + + + +---------+ | 2021-12-13 00:00 | weight_standard | 223.33 | lb | + + + +---------+ | 2021-12-17 00:00 | BMI | 32.0 | kg/m2 | + + + +---------+ | 2021-12-17 00:00 | BP_diastolic | 82 | mmHg | + + + +---------+ | 2021-12-17 00:00 | BP_systolic | 126 | mmHg | + + + +---------+ | 2021-12-17 00:00 | heart_rate | 69 | /min | + + + +---------+ | 2021-12-17 00:00 | height_metric | 177.8 | cm | + + + +---------+ | 2021-12-17 00:00 | height_standard | 70 | in | + + + +---------+ | 2021-12-17 00:00 | o2_saturation | 98 | % | + + + +---------+ | 2021-12-17 00:00 | respiration_rate | 16 | /min | + + + +---------+ | 2021-12-17 00:00 | temperature_metric | 36.94 | C | | | | | | + + + +---------+ | 2021-12-17 00:00 | | 98.5 | F | | | temperature_standar | | | | | d | | | + + + +---------+ | 2021-12-17 00:00 | weight_metric | 101.29 | kg | + + + +---------+ | 2021-12-17 00:00 | weight_standard | 223.31 | lb | + + + +---------+ | 2022-01-10 00:00 | BMI | 32.0 | kg/m2 | + + + +---------+ | 2022-01-10 00:00 | BP_diastolic | 91 | mmHg | + + + +---------+ | 2022-01-10 00:00 | BP_systolic | 143 | mmHg | + + + +---------+ | 2022-01-10 00:00 | heart_rate | 81 | /min | + + + +---------+ | 2022-01-10 00:00 | height_metric | 177.8 | cm | + + + +---------+ | 2022-01-10 00:00 | height_standard | 70 | in | + + + +---------+ | 2022-01-10 00:00 | o2_saturation | 100 | % | + + + +---------+ | 2022-01-10 00:00 | respiration_rate | 16 | /min | + + + +---------+ | 2022-01-10 00:00 | temperature_metric | 37.06 | C | | | | | | + + + +---------+ | 2022-01-10 00:00 | | 98.7 | F | | | temperature_standar | | | | | d | | | + + + +---------+ | 2022-01-10 00:00 | weight_metric | 101.29 | kg | + + + +---------+ | 2022-01-10 00:00 | weight_standard | 223.31 | lb | + + + +---------+ | 2022-03-22 00:00 | BMI | 31.6 | kg/m2 | + + + +---------+ | 2022-03-22 00:00 | BP_diastolic | 79 | mmHg | + + + +---------+ | 2022-03-22 00:00 | BP_systolic | 128 | mmHg | + + + +---------+ | 2022-03-22 00:00 | heart_rate | 63 | /min | + + + +---------+ | 2022-03-22 00:00 | height_metric | 177.8 | cm | + + + +---------+ | 2022-03-22 00:00 | height_standard | 70 | in | + + + +---------+ | 2022-03-22 00:00 | o2_saturation | 98 | % | + + + +---------+ | 2022-03-22 00:00 | respiration_rate | 16 | /min | + + + +---------+ | 2022-03-22 00:00 | temperature_metric | 36.67 | C | | | | | | + + + +---------+ | 2022-03-22 00:00 | | 98 | F | | | temperature_standar | | | | | d | | | + + + +---------+ | 2022-03-22 00:00 | weight_metric | 99.93 | kg | + + + +---------+ | 2022-03-22 00:00 | weight_standard | 220.31 | lb | + + + +---------+ | 2022-04-06 00:00 | BMI | 29.9 | kg/m2 | + + + +---------+ | 2022-04-06 00:00 | BP_diastolic | 88 | mmHg | + + + +---------+ | 2022-04-06 00:00 | BP_systolic | 137 | mmHg | + + + +---------+ | 2022-04-06 00:00 | heart_rate | 95 | /min | + + + +---------+ | 2022-04-06 00:00 | height_metric | 177.8 | cm | + + + +---------+ | 2022-04-06 00:00 | height_standard | 70 | in | + + + +---------+ | 2022-04-06 00:00 | o2_saturation | 98 | % | + + + +---------+ | 2022-04-06 00:00 | respiration_rate | 16 | /min | + + + +---------+ | 2022-04-06 00:00 | temperature_metric | 36.72 | C | | | | | | + + + +---------+ | 2022-04-06 00:00 | | 98.1 | F | | | temperature_standar | | | | | d | | | + + + +---------+ | 2022-04-06 00:00 | weight_metric | 94.4 | kg | + + + +---------+ | 2022-04-06 00:00 | weight_standard | 208.12 | lb | + + + +---------+ | 2022-05-09 00:00 | BMI | 29.8 | kg/m2 | + + + +---------+ | 2022-05-09 00:00 | BP_diastolic | 78 | mmHg | + + + +---------+ | 2022-05-09 00:00 | BP_systolic | 148 | mmHg | + + + +---------+ | 2022-05-09 00:00 | heart_rate | 68 | /min | + + + +---------+ | 2022-05-09 00:00 | height_metric | 177.8 | cm | + + + +---------+ | 2022-05-09 00:00 | height_standard | 70 | in | + + + +---------+ | 2022-05-09 00:00 | o2_saturation | 99 | % | + + + +---------+ | 2022-05-09 00:00 | respiration_rate | 17 | /min | + + + +---------+ | 2022-05-09 00:00 | temperature_metric | 36.67 | C | | | | | | + + + +---------+ | 2022-05-09 00:00 | | 98 | F | | | temperature_standar | | | | | d | | | + + + +---------+ | 2022-05-09 00:00 | weight_metric | 94.35 | kg | + + + +---------+ | 2022-05-09 00:00 | weight_standard | 208 | lb | + + + +---------+ | 2022-08-21 00:00 | BMI | 28.7 | kg/m2 | + + + +---------+ | 2022-08-21 00:00 | BP_diastolic | 89 | mmHg | + + + +---------+ | 2022-08-21 00:00 | BP_systolic | 134 | mmHg | + + + +---------+ | 2022-08-21 00:00 | heart_rate | 102 | /min | + + + +---------+ | 2022-08-21 00:00 | height_metric | 177.8 | cm | + + + +---------+ | 2022-08-21 00:00 | height_standard | 70 | in | + + + +---------+ | 2022-08-21 00:00 | o2_saturation | 98 | % | + + + +---------+ | 2022-08-21 00:00 | respiration_rate | 20 | /min | + + + +---------+ | 2022-08-21 00:00 | temperature_metric | 37.28 | C | | | | | | + + + +---------+ | 2022-08-21 00:00 | | 99.1 | F | | | temperature_standar | | | | | d | | | + + + +---------+ | 2022-08-21 00:00 | weight_metric | 90.72 | kg | + + + +---------+ | 2022-08-21 00:00 | weight_standard | 200 | lb | + + + +---------+ | 2022-09-28 00:00 | BMI | 28.7 | kg/m2 | + + + +---------+ | 2022-09-28 00:00 | BMI | 30.7 | kg/m2 | + + + +---------+ | 2022-09-28 00:00 | BP_diastolic | 71 | mmHg | + + + +---------+ | 2022-09-28 00:00 | BP_diastolic | 92 | mmHg | + + + +---------+ | 2022-09-28 00:00 | BP_systolic | 131 | mmHg | + + + +---------+ | 2022-09-28 00:00 | BP_systolic | 134 | mmHg | + + + +---------+ | 2022-09-28 00:00 | heart_rate | 81 | /min | + + + +---------+ | 2022-09-28 00:00 | heart_rate | 87 | /min | + + + +---------+ | 2022-09-28 00:00 | height_metric | 177.8 | cm | + + + +---------+ | 2022-09-28 00:00 | height_standard | 70 | in | + + + +---------+ | 2022-09-28 00:00 | o2_saturation | 100 | % | + + + +---------+ | 2022-09-28 00:00 | o2_saturation | 99 | % | + + + +---------+ | 2022-09-28 00:00 | respiration_rate | 20 | /min | + + + +---------+ | 2022-09-28 00:00 | respiration_rate | 71 | /min | + + + +---------+ | 2022-09-28 00:00 | temperature_metric | 36.72 | C | | | | | | + + + +---------+ | 2022-09-28 00:00 | temperature_metric | 37.06 | C | | | | | | + + + +---------+ | 2022-09-28 00:00 | | 98.1 | F | | | temperature_standar | | | | | d | | | + + + +---------+ | 2022-09-28 00:00 | | 98.7 | F | | | temperature_standar | | | | | d | | | + + + +---------+ | 2022-09-28 00:00 | weight_metric | 90.75 | kg | + + + +---------+ | 2022-09-28 00:00 | weight_metric | 97 | kg | + + + +---------+ | 2022-09-28 00:00 | weight_standard | 200.06 | lb | + + + +---------+ | 2022-09-28 00:00 | weight_standard | 200.07 | lb | + + + +---------+ | 2022-09-28 00:00 | weight_standard | 213.85 | lb | + + + +---------+ | 2023-02-20 00:00 | BMI | 29.5 | kg/m2 | + + + +---------+ | 2023-02-20 00:00 | BP_diastolic | 87 | mmHg | + + + +---------+ | 2023-02-20 00:00 | BP_systolic | 127 | mmHg | + + + +---------+ | 2023-02-20 00:00 | heart_rate | 82 | /min | + + + +---------+ | 2023-02-20 00:00 | height_metric | 177.8 | cm | + + + +---------+ | 2023-02-20 00:00 | height_standard | 70 | in | + + + +---------+ | 2023-02-20 00:00 | o2_saturation | 100 | % | + + + +---------+ | 2023-02-20 00:00 | respiration_rate | 16 | /min | + + + +---------+ | 2023-02-20 00:00 | temperature_metric | 36.61 | C | | | | | | + + + +---------+ | 2023-02-20 00:00 | | 97.9 | F | | | temperature_standar | | | | | d | | | + + + +---------+ | 2023-02-20 00:00 | weight_metric | 93.2 | kg | + + + +---------+ | 2023-02-20 00:00 | weight_standard | 205.47 | lb | + + + +---------+"
--- OUTSIDE RECORDS SUMMARY | ~2023-04-29 | XMS | Continuity of Care Document ---
Demographics + + + | Address | [address] | | | [place] [address] | + + + | Preferred Language | Unknown | + + + | Marital Status | Never | + + + | Synagogue Affiliation | Unknown | + + + | Race | White | + + + | Ethnic Group | Not or | + + + Author + + + | Author | [facility] | + + + | Organization | [facility] | + + + | Address | [address] | | | [place] [address] | + + + | Phone | | + + + Care Team Providers + + + + | Care Government Auditor Name | Role | Phone | + [...] 2023-02-20 00:00 | No vaccine administered | [facility] | + + + + Medications + + + + | date | description | facility | + + + + | 2022-08-21 00:00 | Fluticasone | [facility] | | | Propion/Salmeterol | | + + + + | 2022-09-28 00:00 | Fluticasone | [facility] | | | Propion/Salmeterol | | + + + + | 2022-09-28 00:00 | Fluticasone | [facility] | | | Propion/Salmeterol | | + + + + | 2023-02-20 00:00 | Fluticasone | [facility] | | | Propion/Salmeterol | | + + + + | 2023-02-20 00:00 | fluticasone propionate 0.5 | [facility] | | | MG/ACTUAT / salmeterol | | | | 0.05 MG/AC | | + + + + | 2022-09-28 00:00 | FLUTICASONE PROPIONATE | [facility] | + + + + | 2022-08-21 00:00 | BENZONATATE | [facility] | + + + + | 2022-08-21 00:00 | BENZONATATE | [facility] | + + + + | 2022-08-21 00:00 | BENZONATATE | [facility] | + + + + | 2021-06-12 00:00 | Beclomethasone | [facility] | | | Dipropionate | | + + + + | 2021-06-12 00:00 | Beclomethasone | [facility] | | | Dipropionate | | + + + + | 2021-06-12 00:00 | Beclomethasone | [facility] | | | Dipropionate | | + + + + | 2021-06-12 00:00 | Beclomethasone | [facility] | | | Dipropionate | | + + + + | 2021-06-12 00:00 | Breath-Actuated 120 ACTUAT | [facility] | | | beclomethasone | | | | dipropionate 0.04 | | + + + + | 2022-04-18 00:00 | Albuterol Sulfate | [facility] | + + + + | 2022-05-09 00:00 | Albuterol Sulfate | [facility] | + + + + | 2022-08-21 00:00 | Albuterol Sulfate | [facility] | + + + + | 2022-09-28 00:00 | Albuterol Sulfate | [facility] | + + + + | 2022-09-28 00:00 | Albuterol Sulfate | [facility] | + + + + | 2023-02-20 00:00 | Albuterol Sulfate | [facility] | + + + + | 2023-02-20 00:00 | Sensor 200 ACTUAT | [facility] | | | albuterol 0.09 MG/ACTUAT | | | | Dry Powder Inhale | | + + + + | 2023-02-20 00:00 | CEPHALEXIN | [facility] | + + + + | 2023-02-20 00:00 | cephalexin 500 MG Oral | [facility] | | | Capsule | | + + + + | 2022-04-18 00:00 | FAMOTIDINE | [facility] | + + + + | 2022-05-09 00:00 | FAMOTIDINE | [facility] | + + + + | 2022-08-21 00:00 | FAMOTIDINE | [facility] | + + + + | 2022-09-28 00:00 | FAMOTIDINE | [facility] | + + + + | 2022-09-28 00:00 | FAMOTIDINE | [facility] | + + + + | 2023-02-20 00:00 | FAMOTIDINE | [facility] | + + + + | 2023-02-20 00:00 | famotidine 20 MG Oral | [facility] | | | Tablet | | + + + + | 2023-02-20 00:00 | METRONIDAZOLE | [facility] | + + + + | 2023-02-20 00:00 | metronidazole 500 MG Oral | [facility] | | | Tablet | | + + + + | 2021-07-18 00:00 | predniSONE | [facility] | + + + + | 2021-07-18 00:00 | predniSONE | [facility] | + + + + | 2021-07-18 00:00 | predniSONE | [facility] | + + + + | 2021-07-18 00:00 | predniSONE | [facility] | + + + + | 2021-07-18 00:00 | prednisone 20 MG Oral | [facility] | | | Tablet | | + + + + | 2022-04-06 00:00 | AMOXICILLIN/POTASSIUM CLAV | [facility] | | | | | + + + + | 2022-05-11 00:00 | AMOXICILLIN/POTASSIUM CLAV | [facility] | | | | | + + + + | 2022-05-11 00:00 | AMOXICILLIN/POTASSIUM CLAV | [facility] | | | | | + + + + | 2022-05-11 00:00 | AMOXICILLIN/POTASSIUM CLAV | [facility] | | | | | + + + + | 2022-05-11 00:00 | amoxicillin 875 MG / | [facility] | | | clavulanate 125 MG Oral | | | | Tablet | | + + + + | 2022-08-21 00:00 | CYCLOBENZAPRINE HCL | [facility] | + + + + | 2022-08-21 00:00 | CYCLOBENZAPRINE HCL | [facility] | + + + + | 2022-04-06 00:00 | TRAMADOL HCL | [facility] | + + + + | 2022-04-06 00:00 | TRAMADOL HCL | [facility] | + + + + | 2022-04-06 00:00 | TRAMADOL HCL | [facility] | + + + + | 2022-04-06 00:00 | TRAMADOL HCL | [facility] | + + + + | 2022-04-06 00:00 | tramadol hydrochloride 50 | [facility] | | | MG Oral Tablet [Ultram] | | + + + + | 2021-07-18 00:00 | ALBUTEROL SULFATE | [facility] | + + + + | 2021-07-18 00:00 | ALBUTEROL SULFATE | [facility] | + + + + | 2021-07-18 00:00 | ALBUTEROL SULFATE | [facility] | + + + + | 2021-07-18 00:00 | ALBUTEROL SULFATE | [facility] | + + + + | 2021-07-18 00:00 | [id number] 200 ACTUAT | [facility] | | | albuterol 0.09 MG/ACTUAT | | | | Metered Dose I | | + + + + Problems + + + + | date | description | facility | + + + + | 2021-06-12 00:00 | Asthma attack | [facility] | + + + + | 2021-06-12 00:00 | Exacerbation of asthma | [facility] | + + + + | 2021-06-12 00:00 | Exacerbation of asthma | [facility] | + + + + | 2021-06-12 00:00 | Exacerbation of asthma | [facility] | + + + + | 2021-06-12 00:00 | Exacerbation of asthma | [facility] | + + + + | 2021-12-13 00:00 | Pilonidal cyst with | [facility] | | | abscess | | + + + + | 2021-12-13 00:00 | Pilonidal cyst with | [facility] | | | abscess | | + + + + | 2021-12-13 00:00 | Pilonidal cyst with | [facility] | | | abscess | | + + + + | 2021-12-13 00:00 | Pilonidal cyst with | [facility] | | | abscess | | + + + + | 2021-12-17 00:00 | Pilonidal abscess of paresh | [facility] | | | cleft | | + + + + | 2021-12-17 00:00 | Pilonidal abscess of paresh | [facility] | | | cleft | | + + + + | 2021-12-17 00:00 | Pilonidal abscess of | [facility] | | | cleft | | + + + + | 2021-12-17 00:00 | Pilonidal abscess of paresh | [facility] | | | cleft | | + + + + | 2022-01-10 00:00 | Viral syndrome | [facility] | + + + + | 2022-01-10 00:00 | Viral infection | [facility] | + + + + | 2022-01-10 00:00 | Viral infection | [facility] | + + + + | 2022-01-10 00:00 | Viral infection | [facility] | + + + + | 2022-01-10 00:00 | Viral infection | [facility] | + + + + | 2022-03-22 00:00 | Plantar fasciitis | [facility] | + + + + | 2022-03-22 00:00 | Plantar fasciitis | [facility] | + + + + | 2022-03-22 00:00 | Plantar fasciitis | [facility] | + + + + | 2022-03-22 00:00 | Plantar fasciitis | [facility] | + + + + | 2022-05-11 00:00 | Encounter for | [facility] | | | post-traumatic wound check | | + + + + | 2022-05-11 00:00 | Encounter for | [facility] | | | post-traumatic wound check | | + + + + | 2022-05-11 00:00 | Encounter for | [facility] | | | post-traumatic wound check | | + + + + | 2022-09-28 00:00 | Acute salpingitis of | [facility] | | | eustachian tube | | + + + + | 2022-09-28 00:00 | Acute salpingitis of | [facility] | | | eustachian tube | | + + + + | 2022-09-28 00:00 | Patient left without being | [facility] | | | seen | | + + + + | 2022-09-28 00:00 | Patient left without being | [facility] | | | seen | | + [...] | 2023-02-20 00:00 | Sacrococcygeal pilonidal | [facility] | | | cyst | | + + + + | 2023-02-20 00:00 | Sacrococcygeal pilonidal | [facility] | | | cyst | | + [...] | Current every day smoker [facility] | + + + + Vital Signs [...]
[~2023-04-29 20:50] MED LIST changes: +CEPHALEXIN500 MG PO; +METRONIDAZOLE500 MG PO
[2023-04-29 21:32] VITALS: BP 133/79
== END 2023-04-29 21:37 | disposition home or self-care (01) ==
LOC: ED 20:50
DX: B34.9 Viral infection, unspecified (principal); J45.909 Unspecified asthma, uncomplicated; F17.200 Nicotine dependence, unspecified, uncomplicated; Z88.5 Allergy status to narcotic agent; Z79.899 Other long term (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
CPT/HCPCS: 99283

== ENCOUNTER 2023-06-30 15:32 | Emergency (ER) | payer OTHER ==
[~2023-06-30] VITALS: Ht 177.8 cm; Wt 88.7 kg
--- OUTSIDE RECORDS SUMMARY | ~2023-06-30 | XMS | Continuity of Care Document ---
Demographics + + + | Address | [address] | | | [place] [address] | + + + | Preferred Language | Unknown | + + + | Marital Status | Never | + + + | Hindu Affiliation | Unknown | + + + | Race | White | + + + | Ethnic Group | Not or | + + + Author + + + | Author | [facility] | + + + | Organization | [facility] | + + + | Address | [address] | | | [place] [address] | + + + | Phone | | + + + Care Team Providers + + + + | Care Tool Turret Lathe Set Up Operator Name | Role | Phone | + [...] + | (no date) | morphine | [facility] | (no reaction) | (no severity) | + + + + + + | (no date) | hydromorphone | [facility] | (no reaction) | (no severity) | + + + + + + | (no date) | Hydromorphone | [facility] | (no reaction) | (no severity) | | | | [facility] | | | + + + + + + Encounters No information. Functional Status No information. Immunizations + + + + | date | description | facility | + + + + | 2023-02-20 00:00 | [facility] | + + + + Medications + + + + | date | description | facility | + + + + | 2023-05-27 00:00 | FAMOTIDINE | [facility] | + + + + | 2022-08-21 00:00 | Fluticasone | [facility] | | | Propion/Salmeterol | | + + + + | 2022-09-28 00:00 | Fluticasone | [facility] | | | Propion/Salmeterol | | + + + + | 2022-09-28 00:00 | Fluticasone | [facility] | | | Propion/Salmeterol | | + + + + | 2023-02-20 00:00 | Fluticasone | [facility] | | | Propion/Salmeterol | | + + + + | 2023-02-20 00:00 | fluticasone propionate 0.5 | [facility] | | | MG/ACTUAT / salmeterol | | | | 0.05 MG/AC | | + + + + | 2022-09-28 00:00 | FLUTICASONE PROPIONATE | [facility] | + + + + | 2022-08-21 00:00 | BENZONATATE | [facility] | + + + + | 2022-08-21 00:00 | BENZONATATE | [facility] | + + + + | 2022-08-21 00:00 | BENZONATATE | [facility] | + + + + | 2021-06-12 00:00 | Beclomethasone | [facility] | | | Dipropionate | | + + + + | 2021-06-12 00:00 | Beclomethasone | [facility] | | | Dipropionate | | + + + + | 2021-06-12 00:00 | Beclomethasone | [facility] | | | Dipropionate | | + + + + | 2021-06-12 00:00 | Beclomethasone | [facility] | | | Dipropionate | | + + + + | 2021-06-12 00:00 | Beclomethasone | [facility] | | | Dipropionate | | + + + + | 2021-06-12 00:00 | Breath-Actuated 120 ACTUAT | [facility] | | | beclomethasone | | | | dipropionate 0.04 | | + + + + | 2022-04-18 00:00 | Albuterol Sulfate | [facility] | + + + + | 2022-05-09 00:00 | Albuterol Sulfate | [facility] | + + + + | 2022-08-21 00:00 | Albuterol Sulfate | [facility] | + + + + | 2022-09-28 00:00 | Albuterol Sulfate | [facility] | + + + + | 2022-09-28 00:00 | Albuterol Sulfate | [facility] | + + + + | 2023-02-20 00:00 | Albuterol Sulfate | [facility] | + + + + | 2023-04-29 00:00 | Albuterol Sulfate | [facility] | + + + + | 2023-05-27 00:00 | Albuterol Sulfate | [facility] | + + + + | 2023-02-20 00:00 | Sensor 200 ACTUAT | [facility] | | | albuterol 0.09 MG/ACTUAT | | | | Dry Powder Inhale | | + + + + | 2023-02-20 00:00 | CEPHALEXIN | [facility] | + + + + | 2023-02-20 00:00 | cephalexin 500 MG Oral | [facility] | | | Capsule | | + + + + | 2022-04-18 00:00 | FAMOTIDINE | [facility] | + + + + | 2022-05-09 00:00 | FAMOTIDINE | [facility] | + + + + | 2022-08-21 00:00 | FAMOTIDINE | [facility] | + + + + | 2022-09-28 00:00 | FAMOTIDINE | [facility] | + + + + | 2022-09-28 00:00 | FAMOTIDINE | [facility] | + + + + | 2023-02-20 00:00 | FAMOTIDINE | [facility] | + + + + | 2023-02-20 00:00 | famotidine 20 MG Oral | [facility] | | | Tablet | | + + + + | 2023-02-20 00:00 | METRONIDAZOLE | [facility] | + + + + | 2023-02-20 00:00 | metronidazole 500 MG Oral | [facility] | | | Tablet | | + + + + | 2021-07-18 00:00 | predniSONE | [facility] | + + + + | 2021-07-18 00:00 | predniSONE | [facility] | + + + + | 2021-07-18 00:00 | predniSONE | [facility] | + + + + | 2021-07-18 00:00 | predniSONE | [facility] | + + + + | 2021-07-18 00:00 | predniSONE | [facility] | + + + + | 2021-07-18 00:00 | prednisone 20 MG Oral | [facility] | | | Tablet | | + + + + | 2022-04-06 00:00 | AMOXICILLIN/POTASSIUM CLAV | [facility] | | | | | + + + + | 2022-05-11 00:00 | AMOXICILLIN/POTASSIUM CLAV | [facility] | | | | | + + + + | 2022-05-11 00:00 | AMOXICILLIN/POTASSIUM CLAV | [facility] | | | | | + + + + | 2022-05-11 00:00 | AMOXICILLIN/POTASSIUM CLAV | [facility] | | | | | + + + + | 2022-05-11 00:00 | AMOXICILLIN/POTASSIUM CLAV | [facility] | | | | | + + + + | 2022-05-11 00:00 | amoxicillin 875 MG / | [facility] | | | clavulanate 125 MG Oral | | | | Tablet | | + + + + | 2022-08-21 00:00 | CYCLOBENZAPRINE HCL | [facility] | + + + + | 2022-08-21 00:00 | CYCLOBENZAPRINE HCL | [facility] | + + + + | 2022-04-06 00:00 | TRAMADOL HCL | [facility] | + + + + | 2022-04-06 00:00 | TRAMADOL HCL | [facility] | + + + + | 2022-04-06 00:00 | TRAMADOL HCL | [facility] | + + + + | 2022-04-06 00:00 | TRAMADOL HCL | [facility] | + + + + | 2022-04-06 00:00 | TRAMADOL HCL | [facility] | + + + + | 2022-04-06 00:00 | tramadol hydrochloride 50 | [facility] | | | MG Oral Tablet [Ultram] | | + + + + | 2021-07-18 00:00 | ALBUTEROL SULFATE | [facility] | + + + + | 2021-07-18 00:00 | ALBUTEROL SULFATE | [facility] | + + + + | 2021-07-18 00:00 | ALBUTEROL SULFATE | [facility] | + + + + | 2021-07-18 00:00 | ALBUTEROL SULFATE | [facility] | + + + + | 2021-07-18 00:00 | ALBUTEROL SULFATE | [facility] | + + + + | 2021-07-18 00:00 | [id number] 200 ACTUAT | [facility] | | | albuterol 0.09 MG/ACTUAT | | | | Metered Dose I | | + + + + Problems + + + + | date | description | facility | + + + + | 2021-06-12 00:00 | Asthma attack | [facility] | + + + + | 2021-06-12 00:00 | Exacerbation of asthma | [facility] | + + + + | 2021-06-12 00:00 | Exacerbation of asthma | [facility] | + + + + | 2021-06-12 00:00 | Exacerbation of asthma | [facility] | + + + + | 2021-06-12 00:00 | Exacerbation of asthma | [facility] | + + + + | 2021-06-12 00:00 | Exacerbation of asthma | [facility] | + + + + | 2021-12-13 00:00 | Pilonidal cyst with | [facility] | | | abscess | | + + + + | 2021-12-13 00:00 | Pilonidal cyst with | [facility] | | | abscess | | + + + + | 2021-12-13 00:00 | Pilonidal cyst with | [facility] | | | abscess | | + + + + | 2021-12-13 00:00 | Pilonidal cyst with | [facility] | | | abscess | | + + + + | 2021-12-13 00:00 | Pilonidal cyst with | 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 | | | cleft | | + + + + | 2021-12-17 00:00 | Pilonidal abscess of paresh | 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 | | | cleft | | + + + + | 2022-01-10 00:00 | Viral syndrome | [facility] | + + + + | 2022-01-10 00:00 | Viral infection | [facility] | + + + + | 2022-01-10 00:00 | Viral infection | [facility] | + + + + | 2022-01-10 00:00 | Viral infection | [facility] | + + + + | 2022-01-10 00:00 | Viral infection | [facility] | + + + + | 2022-01-10 00:00 | Viral infection | [facility] | + + + + | 2022-03-22 00:00 | Plantar fasciitis | [facility] | + + + + | 2022-03-22 00:00 | Plantar fasciitis | [facility] | + + + + | 2022-03-22 00:00 | Plantar fasciitis | [facility] | + + + + | 2022-03-22 00:00 | Plantar fasciitis | [facility] | + + + + | 2022-03-22 00:00 | Plantar fasciitis | 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 | | + + + + | 2022-03-22 15:45 | PAIN IN RIGHT FOOT | [facility] | + + + + | 2022-03-22 15:45 | OTHER LONG-TERM (CURRENT) | [facility] | | | DRUG THERAPY | | + + + + | 2022-03-22 15:45 | ALLERGY STATUS TO NARCOTIC | [facility] | | | AGENT STATUS | | + + + + | 2022-04-06 01:20 | NICOTINE DEPENDENCE, | [facility] | | | UNSPECIFIED, UNCOMPLICATED | | + + + + | 2022-04-06 01:20 | UNSPECIFIED ASTHMA, | [facility] | | | UNCOMPLICATED | | + + + + | 2022-04-06 01:20 | PILONIDAL CYST WITH | [facility] | | | ABSCESS | | + + + + | 2022-04-06 01:20 | OTHER MEDICINAL CHEMIST (CURRENT) | [facility] | | | DRUG THERAPY | | + + + + | 2022-04-06 01:20 | ALLERGY STATUS TO NARCOTIC | [facility] | | | AGENT STATUS | | + + + + | 2022-05-09 14:09 | NICOTINE DEPENDENCE, | [facility] | | | UNSPECIFIED, UNCOMPLICATED | | + + + + | 2022-05-09 14:09 | UNSPECIFIED ASTHMA, | [facility] | | | UNCOMPLICATED | | + + + + | 2022-05-09 14:09 | LACERATION W/O FB OF L IDX | [facility] | | | FNGR W/O DAMAGE TO NAIL, | | | | INIT | | + + + + | 2022-05-09 14:09 | CONTACT WITH UNSPECIFIED | [facility] | | | SHARP OBJECT(S), INITIAL | | + + + + | 2022-05-09 14:09 | CIVILIAN ACTIVITY DONE FOR | [facility] | | | INCOME OR PAY | | + + + + | 2022-05-09 14:09 | OTHER LONG-TERM (CURRENT) | [facility] | | | DRUG THERAPY | | + + + + | 2022-05-09 14:09 | ALLERGY STATUS TO NARCOTIC | [facility] | | | AGENT STATUS | | + + + + | 2022-05-11 00:00 | Encounter for | [facility] | | | post-traumatic wound check | | + + + + | 2022-05-11 00:00 | Encounter for | [facility] | | | post-traumatic wound check | | + + + + | 2022-05-11 00:00 | Encounter for | [facility] | | | post-traumatic wound check | | + + + + | 2022-05-11 00:00 | Encounter for | [facility] | | | post-traumatic wound check | | + + + + | 2022-05-11 20:59 | NICOTINE DEPENDENCE, | [facility] | | | UNSPECIFIED, UNCOMPLICATED | | + + + + | 2022-05-11 20:59 | ENCOUNTER FOR CHANGE OR | [facility] | | | REMOVAL OF NONSURG WOUND | | | | DRESSING | | + + + + | 2022-05-11 20:59 | OTHER MEDICINAL CHEMIST (CURRENT) | [facility] | | | DRUG THERAPY | | + + + + | 2022-05-11 20:59 | ALLERGY STATUS TO NARCOTIC | [facility] | | | AGENT STATUS | | + + + + | 2022-08-21 20:48 | VIRAL INFECTION, | [facility] | | | UNSPECIFIED | | + + + + | 2022-08-21 20:48 | NICOTINE DEPENDENCE, | [facility] | | | UNSPECIFIED, UNCOMPLICATED | | + + + + | 2022-08-21 20:48 | ACUTE PHARYNGITIS, | [facility] | | | UNSPECIFIED | | + + + + | 2022-08-21 20:48 | UNSPECIFIED ASTHMA, | [facility] | | | UNCOMPLICATED | | + + + + | 2022-08-21 20:48 | OTHER LONG-TERM (CURRENT) | [facility] | | | DRUG THERAPY | | + + + + | 2022-08-21 20:48 | ALLERGY STATUS TO NARCOTIC | [facility] | | | AGENT STATUS | | + + + + | 2022-08-21 20:48 | ALLERGY STATUS TO | [facility] | | | ANALGESIC AGENT STATUS | | + + + + | 2022-09-28 00:00 | Acute salpingitis of | [facility] | | | eustachian tube | | + + + + | 2022-09-28 00:00 | Acute salpingitis of | [facility] | | | eustachian tube | | + + + + | 2022-09-28 00:00 | Acute salpingitis of | [facility] | | | eustachian tube | | + + + + | 2022-09-28 00:00 | Patient left without being | [facility] | | | seen | | + + + + | 2022-09-28 00:00 | Patient left without being | [facility] | | | seen | | + + + + | 2022-09-28 00:00 | Patient left without being | [facility] | | | seen | | + [...] + + | 2022-09-28 22:17 | OTHER MEDICINAL CHEMIST (CURRENT) | [facility] | | | DRUG THERAPY | | + + + + | 2022-09-28 22:17 | ALLERGY STATUS TO NARCOTIC | [facility] | | | AGENT STATUS | | + + + + | 2023-02-20 00:00 | Sacrococcygeal pilonidal | [facility] | | | cyst | | + + + + | 2023-02-20 00:00 | Sacrococcygeal pilonidal | [facility] | | | cyst | | + + + + | 2023-02-20 00:00 | Sacrococcygeal pilonidal | [facility] | | | cyst | | + + + + | 2023-02-20 17:30 | NICOTINE DEPENDENCE, | [facility] | | | UNSPECIFIED, UNCOMPLICATED | | + + + + | 2023-02-20 17:30 | UNSPECIFIED ASTHMA, | [facility] | | | UNCOMPLICATED | | + + + + | 2023-02-20 17:30 | PILONIDAL CYST WITHOUT | [facility] | | | ABSCESS | | + + + + | 2023-02-20 17:30 | OTHER MEDICINAL CHEMIST (CURRENT) | [facility] | | | DRUG THERAPY | | + + + + | 2023-02-20 17:30 | ALLERGY STATUS TO NARCOTIC | [facility] | | | AGENT STATUS | | + + + + | 2023-04-29 20:51 | VIRAL INFECTION, | [facility] | | | UNSPECIFIED | | + + + + | 2023-04-29 20:51 | NICOTINE DEPENDENCE, | [facility] | | | UNSPECIFIED, UNCOMPLICATED | | + + + + | 2023-04-29 20:51 | UNSPECIFIED ASTHMA, | [facility] | | | UNCOMPLICATED | | + + + + | 2023-04-29 20:51 | OTHER MEDICINAL CHEMIST (CURRENT) | [facility] | | | DRUG THERAPY | | + + + + | 2023-04-29 20:51 | ALLERGY STATUS TO NARCOTIC | [facility] | | | AGENT STATUS | | + + + + | 2023-05-27 20:45 | NICOTINE DEPENDENCE, | [facility] | | | UNSPECIFIED, UNCOMPLICATED | | + + + + | 2023-05-27 20:45 | UNSPECIFIED ASTHMA WITH | [facility] | | | (ACUTE) EXACERBATION | | + + + + | 2023-05-27 20:45 | SHORTNESS OF BREATH | [facility] | + + + + | 2023-05-27 20:45 | OTHER MEDICINAL CHEMIST (CURRENT) | [facility] | | | DRUG THERAPY | | + + + + | 2023-05-27 20:45 | ALLERGY STATUS TO NARCOTIC | [facility] | | | AGENT STATUS | | + + + + Procedures [...] | [facility] every day [facility] | + + + + Vital Signs [...] 205.47 | lb | + + + +---------+ | 2023-04-29 00:00 | BMI | 28.3 | kg/m2 | + + + +---------+ | 2023-04-29 00:00 | BP_diastolic | 79 | mmHg | + + + +---------+ | 2023-04-29 00:00 | BP_systolic | 133 | mmHg | + + + +---------+ | 2023-04-29 00:00 | heart_rate | 87 | /min | + + + +---------+ | 2023-04-29 00:00 | height_metric | 177.8 | cm | + + + +---------+ | 2023-04-29 00:00 | height_standard | 70 | in | + + + +---------+ | 2023-04-29 00:00 | o2_saturation | 100 | % | + + + +---------+ | 2023-04-29 00:00 | respiration_rate | 16 | /min | + + + +---------+ | 2023-04-29 00:00 | temperature_metric | 36.78 | C | | | | | | + + + +---------+ | 2023-04-29 00:00 | | 98.2 | F | | | temperature_standar | | | | | d | | | + + + +---------+ | 2023-04-29 00:00 | weight_metric | 89.4 | kg | + + + +---------+ | 2023-04-29 00:00 | weight_standard | 197.09 | lb | + + + +---------+ | 2023-05-27 00:00 | BMI | 28.8 | kg/m2 | + + + +---------+ | 2023-05-27 00:00 | BP_diastolic | 88 | mmHg | + + + +---------+ | 2023-05-27 00:00 | BP_systolic | 135 | mmHg | + + + +---------+ | 2023-05-27 00:00 | heart_rate | 70 | /min | + + + +---------+ | 2023-05-27 00:00 | height_metric | 177.8 | cm | + + + +---------+ | 2023-05-27 00:00 | height_standard | 70 | in | + + + +---------+ | 2023-05-27 00:00 | o2_saturation | 97 | % | + + + +---------+ | 2023-05-27 00:00 | respiration_rate | 20 | /min | + + + +---------+ | 2023-05-27 00:00 | temperature_metric | 36.56 | C | | | | | | + + + +---------+ | 2023-05-27 00:00 | | 97.8 | F | | | temperature_standar | | | | | d | | | + + + +---------+ | 2023-05-27 00:00 | weight_metric | 91 | kg | + + + +---------+ | 2023-05-27 00:00 | weight_standard | 200.62 | lb | + + + +---------+"
--- OUTSIDE RECORDS SUMMARY | ~2023-06-30 | XMS | Continuity of Care Document ---
Demographics + + + | Address | [address] | | | [place] [address] | + + + | Preferred Language | Unknown | + + + | Marital Status | Never | + + + | Pentecostalism Affiliation | Unknown | + + + | Race | White | + + + | Ethnic Group | Not or | + + + Author + + + | Author | [facility] | + + + | Organization | [facility] | + + + | Address | [address] | | | [place] [address] | + + + | Phone | | + + + Care Team Providers + + + + | Care Collar Shaper Operator Name | Role | Phone | [...] + | (no date) | Hydromorphone | [facility] | (no reaction) | (no severity) | | | | [facility] | | | | [facility] | | | + + + + + + Encounters No information. Functional Status No information. Immunizations + + + + | date | description | facility | + + + + | 2023-02-20 00:00 | [facility] | + + + + Medications + + + + | date | description | facility | + + + + | 2023-05-27 00:00 | FAMOTIDINE | [facility] | + + + + | 2022-08-21 00:00 | Fluticasone | [facility] | | | Propion/Salmeterol | | + + + + | 2022-09-28 00:00 | Fluticasone | [facility] | | | Propion/Salmeterol | | + + + + | 2022-09-28 00:00 | Fluticasone | [facility] | | | Propion/Salmeterol | | + + + + | 2023-02-20 00:00 | Fluticasone | [facility] | | | Propion/Salmeterol | | + + + + | 2023-02-20 00:00 | fluticasone propionate 0.5 | [facility] | | | MG/ACTUAT / salmeterol | | | | 0.05 MG/AC | | + + + + | 2022-09-28 00:00 | FLUTICASONE PROPIONATE | [facility] | + + + + | 2022-08-21 00:00 | BENZONATATE | [facility] | + + + + | 2022-08-21 00:00 | BENZONATATE | [facility] | + + + + | 2022-08-21 00:00 | BENZONATATE | [facility] | + + + + | 2021-06-12 00:00 | Beclomethasone | [facility] | | | Dipropionate | | + + + + | 2021-06-12 00:00 | Beclomethasone | [facility] | | | Dipropionate | | + + + + | 2021-06-12 00:00 | Beclomethasone | [facility] | | | Dipropionate | | + + + + | 2021-06-12 00:00 | Beclomethasone | [facility] | | | Dipropionate | | + + + + | 2021-06-12 00:00 | Beclomethasone | [facility] | | | Dipropionate | | + + + + | 2021-06-12 00:00 | Breath-Actuated 120 ACTUAT | [facility] | | | beclomethasone | | | | dipropionate 0.04 | | + + + + | 2022-04-18 00:00 | Albuterol Sulfate | [facility] | + + + + | 2022-05-09 00:00 | Albuterol Sulfate | [facility] | + + + + | 2022-08-21 00:00 | Albuterol Sulfate | [facility] | + + + + | 2022-09-28 00:00 | Albuterol Sulfate | [facility] | + + + + | 2022-09-28 00:00 | Albuterol Sulfate | [facility] | + + + + | 2023-02-20 00:00 | Albuterol Sulfate | [facility] | + + + + | 2023-04-29 00:00 | Albuterol Sulfate | [facility] | + + + + | 2023-05-27 00:00 | Albuterol Sulfate | [facility] | + + + + | 2023-02-20 00:00 | Sensor 200 ACTUAT | [facility] | | | albuterol 0.09 MG/ACTUAT | | | | Dry Powder Inhale | | + + + + | 2023-02-20 00:00 | CEPHALEXIN | [facility] | + + + + | 2023-02-20 00:00 | cephalexin 500 MG Oral | [facility] | | | Capsule | | + + + + | 2022-04-18 00:00 | FAMOTIDINE | [facility] | + + + + | 2022-05-09 00:00 | FAMOTIDINE | [facility] | + + + + | 2022-08-21 00:00 | FAMOTIDINE | [facility] | + + + + | 2022-09-28 00:00 | FAMOTIDINE | [facility] | + + + + | 2022-09-28 00:00 | FAMOTIDINE | [facility] | + + + + | 2023-02-20 00:00 | FAMOTIDINE | [facility] | + + + + | 2023-02-20 00:00 | famotidine 20 MG Oral | [facility] | | | Tablet | | + + + + | 2023-02-20 00:00 | METRONIDAZOLE | [facility] | + + + + | 2023-02-20 00:00 | metronidazole 500 MG Oral | [facility] | | | Tablet | | + + + + | 2021-07-18 00:00 | predniSONE | [facility] | + + + + | 2021-07-18 00:00 | predniSONE | [facility] | + + + + | 2021-07-18 00:00 | predniSONE | [facility] | + + + + | 2021-07-18 00:00 | predniSONE | [facility] | + + + + | 2021-07-18 00:00 | predniSONE | [facility] | + + + + | 2021-07-18 00:00 | prednisone 20 MG Oral | [facility] | | | Tablet | | + + + + | 2022-04-06 00:00 | AMOXICILLIN/POTASSIUM CLAV | [facility] | | | | | + + + + | 2022-05-11 00:00 | AMOXICILLIN/POTASSIUM CLAV | [facility] | | | | | + + + + | 2022-05-11 00:00 | AMOXICILLIN/POTASSIUM CLAV | [facility] | | | | | + + + + | 2022-05-11 00:00 | AMOXICILLIN/POTASSIUM CLAV | [facility] | | | | | + + + + | 2022-05-11 00:00 | AMOXICILLIN/POTASSIUM CLAV | [facility] | | | | | + + + + | 2022-05-11 00:00 | amoxicillin 875 MG / | [facility] | | | clavulanate 125 MG Oral | | | | Tablet | | + + + + | 2022-08-21 00:00 | CYCLOBENZAPRINE HCL | [facility] | + + + + | 2022-08-21 00:00 | CYCLOBENZAPRINE HCL | [facility] | + + + + | 2022-04-06 00:00 | TRAMADOL HCL | [facility] | + + + + | 2022-04-06 00:00 | TRAMADOL HCL | [facility] | + + + + | 2022-04-06 00:00 | TRAMADOL HCL | [facility] | + + + + | 2022-04-06 00:00 | TRAMADOL HCL | [facility] | + + + + | 2022-04-06 00:00 | TRAMADOL HCL | [facility] | + + + + | 2022-04-06 00:00 | tramadol hydrochloride 50 | [facility] | | | MG Oral Tablet [Ultram] | | + + + + | 2021-07-18 00:00 | ALBUTEROL SULFATE | [facility] | + + + + | 2021-07-18 00:00 | ALBUTEROL SULFATE | [facility] | + + + + | 2021-07-18 00:00 | ALBUTEROL SULFATE | [facility] | + + + + | 2021-07-18 00:00 | ALBUTEROL SULFATE | [facility] | + + + + | 2021-07-18 00:00 | ALBUTEROL SULFATE | [facility] | + + + + | 2021-07-18 00:00 | [id number] 200 ACTUAT | [facility] | | | albuterol 0.09 MG/ACTUAT | | | | Metered Dose I | | + + + + Problems + + + + | date | description | facility | + + + + | 2021-06-12 00:00 | Asthma attack | [facility] | + + + + | 2021-06-12 00:00 | Exacerbation of asthma | [facility] | + + + + | 2021-06-12 00:00 | Exacerbation of asthma | [facility] | + + + + | 2021-06-12 00:00 | Exacerbation of asthma | [facility] | + + + + | 2021-06-12 00:00 | Exacerbation of asthma | [facility] | + + + + | 2021-06-12 00:00 | Exacerbation of asthma | [facility] | + + + + | 2021-12-13 00:00 | Pilonidal cyst with | [facility] | | | abscess | | + + + + | 2021-12-13 00:00 | Pilonidal cyst with | [facility] | | | abscess | | + + + + | 2021-12-13 00:00 | Pilonidal cyst with | [facility] | | | abscess | | + + + + | 2021-12-13 00:00 | Pilonidal cyst with | [facility] | | | abscess | | + + + + | 2021-12-13 00:00 | Pilonidal cyst with | [facility] | | | abscess | | + + + + | 2021-12-17 00:00 | Pilonidal abscess of | [facility] | | | cleft | | + + + + | 2021-12-17 00:00 | Pilonidal abscess of paresh | [facility] | | | cleft | | + + + + | 2021-12-17 00:00 | Pilonidal abscess of paresh | [facility] | | | cleft | | + + + + | 2021-12-17 00:00 | Pilonidal abscess of | [facility] | | | cleft | | + + + + | 2021-12-17 00:00 | Pilonidal abscess of | [facility] | | | cleft | | + + + + | 2022-01-10 00:00 | Viral syndrome | [facility] | + + + + | 2022-01-10 00:00 | Viral infection | [facility] | + + + + | 2022-01-10 00:00 | Viral infection | [facility] | + + + + | 2022-01-10 00:00 | Viral infection | [facility] | + + + + | 2022-01-10 00:00 | Viral infection | [facility] | + + + + | 2022-01-10 00:00 | Viral infection | [facility] | + + + + | 2022-03-22 00:00 | Plantar fasciitis | [facility] | + + + + | 2022-03-22 00:00 | Plantar fasciitis | [facility] | + + + + | 2022-03-22 00:00 | Plantar fasciitis | [facility] | + + + + | 2022-03-22 00:00 | Plantar fasciitis | [facility] | + + + + | 2022-03-22 00:00 | Plantar fasciitis | [facility] | + + + + [...] + + | 2022-04-06 01:20 | 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[facility] | | | 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 [...] 2022-05-11 00:00 | Encounter for | [facility] | | | post-traumatic wound check | | + + + + | 2022-05-11 00:00 | Encounter for | [facility] | | | post-traumatic wound check | | + + + + | 2022-05-11 00:00 | Encounter for | [facility] | | | post-traumatic wound check | | + + + + | 2022-05-11 00:00 | Encounter for | [facility] | | | post-traumatic wound [...] + + | 2022-05-11 20:59 | 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[facility] | | | DRUG [...] 00:00 | Acute salpingitis of | [facility] | | | eustachian tube | | + + + + | 2022-09-28 00:00 | Acute salpingitis of | [facility] | | | eustachian tube | | + + + + | 2022-09-28 00:00 | Acute salpingitis of | [facility] | | | eustachian tube | | + + + + | 2022-09-28 00:00 | Patient left without being | [facility] | | | seen | | + + + + | 2022-09-28 00:00 | Patient left without being | [facility] | | | seen | | + + + + | 2022-09-28 00:00 | Patient left without being | [facility] | | | seen | [...] + + | 2022-09-28 22:17 | 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[facility] | | | DRUG THERAPY | | + + + + | 2022-09-28 22:17 | ALLERGY STATUS TO NARCOTIC | [facility] | | | AGENT STATUS | | + + + + | 2023-02-20 00:00 | Sacrococcygeal pilonidal | [facility] | | | cyst | | + + + + | 2023-02-20 00:00 | Sacrococcygeal pilonidal | [facility] | | | cyst | | + + + + | 2023-02-20 00:00 | Sacrococcygeal pilonidal | [facility] | | | cyst | [...] + + | 2023-02-20 17:30 | 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
[~2023-06-30 15:32] MED LIST changes: +PEPCID20 MG PO
--- OUTSIDE RECORDS SUMMARY | 2023-06-30 15:35 | XMS ---
PreManage Notification: MALKA BELTRAN Security Biztalk Administrator Events 1 event(s) in the past 18 months Most recent security events: Elopement at [facility] 09/28/2022 12:07 - Patient eloped before treatment completed. - Patient with suicidal and/or homicidal ideations eloped. - Patient eloped with IV in place. Details: Patient LWBS. CRITERIA MET - 6 ED Visits in 6 Months - [facility] - 2 Visits in 30 Days CARE PROVIDERS -Jamia- Dentist: Javascript Web Developer [facility] PHONE: [phone] Nikos Eng PA-C Physician Hog Stomach Preparer Current PHONE: Unknown RBIDGER STRONG Knot Tying Operator: Clinical Current PHONE: Unknown Care Guidelines exist for the following facilities: [facility] ( 12/08/2016 ) Care History Medical/Surgical 05/11/2017 [facility] Care Recommendation: Reason for establishing care guidelines: this patient has been identified as having at least 5 Emergency Department visits in [facility] in the 12 months immediately preceding the date these guidelines were entered. This care plan reflects only preliminary care guidelines. Providers should exercise clinical judgement when providing care. Contact your emergency department Black Leather Trimmer for further assistance. Primary Care Physician:Lucas Figueroa. [...] the Emergency Department. Please contact your [facility] Case Management department if further intervention is needed in the care of this patient. It may be appropriate for this patient to seek care at an Urgent Care Center instead of the Emergency Room, please offer this alternate plan to the patient and provide list of Urgent Care Clinics. Substance Abuse: None Mental Health: None Pain/Opioid Agreement: Please use the [facility]ELLE Prescription Monitoring Program for specifics related to pts use of narcotics medications. https://secureaccess.[place].gov 05/11/2017 [facility] Care Recommendation: Reason for establishing care guidelines: this patient has been identified as having at least 5 Emergency Department visits in [facility] in the 12 months immediately preceding the date these guidelines were entered. This care plan reflects only preliminary care guidelines. Providers should exercise clinical judgement when providing care. Contact your emergency department Black Leather Trimmer for further assistance. Primary Care Physician:Lucas Figueroa. [...] the Emergency Department. Please contact your [facility] Case Management department if further intervention is needed in the care of this patient. It may be appropriate for this patient to seek care at an Urgent Care Center instead of the Emergency Room, please offer this alternate plan to the patient and provide list of Urgent Care Clinics. Substance Abuse: None Mental Health: None Pain/Opioid Agreement: Please use the [facility] Prescription Monitoring Program for specifics related to pts use of narcotics medications. [email or web address] 05/11/2017 [facility] Care Recommendation: Reason for establishing care guidelines: this patient has been identified as having at least 5 Emergency Department visits in [facility] in the 12 months immediately preceding the date these guidelines were entered. This care plan reflects only preliminary care guidelines. Providers should exercise clinical judgement when providing care. Contact your emergency department Black Leather Trimmer for further assistance. Primary Care Physician:Lucas Figueroa. [...] of the Emergency Department. Please contact your [facility] Case Management department if further intervention is needed in the care of this patient. It may be appropriate for this patient to seek care at an Urgent Care Center instead of the Emergency Room, please offer this alternate plan to the patient and provide list of Urgent Care Clinics. Substance Abuse: None Mental Health: None Pain/Opioid Agreement: Please use the [facility] Prescription Monitoring Program for specifics related to pts use of narcotics medications. [email or web address] E.D. VISIT COUNT (12 MO.) 7 KHADIJAH [facility]. Mary Kristina (Shayne Bella) TOTAL 11 NOTE: Visits indicate total known visits. ED/UCC VISIT TRACKING (12 MO.) 06/30/2023 15:32 [facility] [place] TYPE: Emergency COMPLAINT: - FLANK PAIN [facility]23 11[facility]: Emergency DIAGNOSES: - Pilonidal cyst without abscess - Unspecified asthma, uncomplicated - Cyst - cyst, needs inhaler rx also - Medication Refill 05/27/2023 20:45 K[facility]IJAH [facility] [place] TYPE: Emergency COMPLAINT: - POSS ASTHMA ATTACK DIAGNOSES: - Allergy status to narcotic agent - Nicotine dependence, unspecified, uncomplicated - Other salvage determiner (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 - Shortness of breath - Unspecified asthma with (acute) exacerbation 04/29/2023 20:51 KHADIJAH [facility] TYPE: Emergency COMPLAINT: - BODYACHE DIAGNOSES: - Allergy status to narcotic agent - Headache, unspecified - Nicotine dependence, unspecified, uncomplicated - Other salvage determiner (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 - Unspecified asthma, uncomplicated - Viral infection, unspecified 02/23/2023 11:11 [facility] Bella[facility] TYPE: Emergency DIAGNOSES: - Pilonidal cyst with abscess - Back Pain - lower back pain, - lower back pain, cyst 02/20/2023 17:30 [facility]IJ[facility] [place] TYPE: Emergency COMPLAINT: - SKIN PROBLEM DIAGNOSES: - Allergy status to narcotic agent - Nicotine dependence, unspecified, uncomplicated - Other salvage determiner (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 - Pilonidal cyst without abscess - Unspecified asthma, uncomplicated 11[facility]27[facility]2022 [facility]:02 [facility]: Emergency DIAGNOSES: - Pilonidal sinus with abscess - Abscess (Complicated) - cyst 11/21/2022 03:12 [facility] Shayne MABRY ([place]) TYPE: Emergency DIAGNOSES: - Acute gastritis with bleeding - Emesis - vomiting, blood in vomit 09/28/2022 22:17 KHADIJAH [facility] TYPE: Emergency COMPLAINT: - EAR PAIN DIAGNOSES: - Acute Eustachian salpingitis, bilateral - Allergy status to narcotic agent - Nausea - Nicotine dependence, unspecified, uncomplicated - Other nursing home (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 - Unspecified asthma, uncomplicated 09/28/2022 12:07 KHADIJAH [facility] [place] TYPE: Emergency COMPLAINT: - EAR PAIN/PROBLEM 08/21/2022 20:48 [facility]IJAH [facility] [place] TYPE: Emergency COMPLAINT: - BODY ACHES, FLU SYMPTOMS DIAGNOSES: - Acute pharyngitis, unspecified - Allergy status to analgesic agent - Allergy status to narcotic agent - Contact with and (suspected) exposure to COVID-19 - Nicotine dependence, unspecified, uncomplicated - Other nursing home (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 - Unspecified asthma, uncomplicated - Viral infection, unspecified INPATIENT VISIT TRACKING (12 MO.) No inpatient visits to display in this time frame [email or web address]
[2023-06-30 16:04] LABS: BASOPHILS 0.2 % (0-2); EOSINOPHILS 4.3 % (0-6); HEMATOCRIT 47.4 % (35.0-50.0); HEMOGLOBIN 15.9 g/dL (12.0-18.0); LYMPHOCYTES 6.4 % (24-44); MCH 30.7 (27-36); MCHC 33.5 g/dl (30-36); MCV 91.8 fl (81-99); MONOCYTES 8.9 % (0-12); NEUTROPHILS 80.2 % (39-80); PLATELET COUNT 275 K/uL (140-440); RBC 5.16 M/ul (4.3-5.7); RDW 13.8 (10.5-15.0)
[2023-06-30 16:14] LABS: ALBUMIN 3.9 g/dL (3.4-5.0); ALBUMIN/GLOBULIN RATIO 1.22 (1.1-2.4); ANION GAP 14.8 (7-21); BILIRUBIN, TOTAL 0.3 ng/dL (0.2-1.0); BUN/CREATININE RATIO 10.34 (6.0-28.6); CALCIUM 9.1 mg/dL (8.5-10.1); CREATININE, SERUM 1.16 mg/dL (0.70-1.30); POTASSIUM 3.8 mmol/L (3.5-5.1); PROTEIN, TOTAL 7.1 g/dL (6.4-8.2)
[2023-06-30 16:41] LABS: BILIRUBIN, URINE NEGATIVE (negative); BLOOD/HGB, URINE NEGATIVE (Negative); KETONE, URINE NEGATIVE (Negative); LEUK ESTERASE, URINE NEGATIVE (negative); NITRITE, URINE NEGATIVE (negative)
[2023-06-30 16:47] LABS: BACTERIA, URINE 2+ /hpf (negative); CASTS, URINE NONE SEEN \\lpf; COLLECTION TYPE, URINE CLEAN CATCH; CRYSTALS, URINE AMORPHOUS PHOSPH 2+ (0-1+); EPITHELIAL CELLS, URINE NONE SEEN /lpf (0-1+); RED BLOOD CELLS, URINE 0-1 /hpf (0-5); REFLEX CULTURE, URINE Yes (No); WHITE BLOOD CELLS, URINE 0-1 /HPF (0-5)
[2023-06-30] MEDS ORDERED: LASIX40 MG PO (17:19)
[2023-06-30] MEDS ORDERED: K-TAB ER20 MEQ PO (17:20)
[2023-06-30] MEDS ORDERED: CYCLOBENZAPRINE10 MG PO (17:51)
[2023-06-30 18:10] VITALS: BP 103/67
== END 2023-06-30 18:10 | disposition home or self-care (01) ==
LOC: ED 15:32
PROVIDERS: Emergency Medicine
DX: M54.50 Low back pain, unspecified (principal); F17.200 Nicotine dependence, unspecified, uncomplicated; Z88.5 Allergy status to narcotic agent; Z87.440 Personal history of urinary (tract) infections
CPT/HCPCS: 36415; 80053; 81001; 85025; 87088; 96374; 96375; 99283-25; A9270; J1885; J2405

== ENCOUNTER 2023-07-23 22:31 | Emergency (ER) | payer OTHER ==
[~2023-07-23] VITALS: Ht 177.8 cm; Wt 87.1 kg
[~2023-07-23 22:31] MED LIST changes: +K-TAB ER20 MEQ PO; +LASIX40 MG PO
--- OUTSIDE RECORDS SUMMARY | 2023-07-23 22:33 | XMS ---
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 - Patient with suicidal and/or homicidal ideations eloped. - Patient eloped with IV in place. Details: Patient LWBS. CRITERIA MET - 6 ED Visits in 6 Months - [facility] - 2 Visits in 30 Days CARE PROVIDERS -Jamia- Dentist: Leadership Program Intern [facility] PHONE: [phone] Nikos Eng PA-C Physician Hvac Sales Representative Current PHONE: Unknown BRIDGER STRONG Direct Marketing Representative: Clinical Current PHONE: Unknown Care Guidelines exist for the following facilities: [facility] ( 12/08/2016 ) Care History Medical/Surgical 05/11/2017 [facility] Recommendation: Reason for establishing care guidelines: this patient has been identified as having at least 5 Emergency Department visits in [facility] in the 12 months immediately preceding the date these guidelines were entered. This care plan reflects only preliminary care guidelines. Providers should exercise clinical judgement when providing care. Contact your emergency department Director Check for further assistance. Primary Care Physician: Lucas Figueroa. Please contact pt’s PCP and/or specialty providers for additional information on chronic conditions. Past Medical History: Asthma, Chronic Kidney Disease, GERD, MRSA Past Surgical History: Renal Biopsy Problem List: Educate patient regarding the proper use of the Emergency Room. Redirect patient to him/her PCP for care that does not require the use of the Emergency Department. Please contact your facility’s Case Management department if further intervention is needed in the care of this patient. It may be appropriate for this patient to seek care at an Urgent Care Center instead of the Emergency Room, please offer this alternate plan to the patient and provide list of Urgent Care Clinics. Substance Abuse: None Mental Health: None Pain/Opioid Agreement: Please use the [facility] Prescription Monitoring Program for specifics related to pt’s use of narcotics medications. https://secureaccess.[place].gov 05/11/2017 [facility] Recommendation: Reason for establishing care guidelines: this patient has been identified as having at least 5 Emergency Department visits in [facility] in the 12 months immediately preceding the date these guidelines were entered. This care plan reflects only preliminary care guidelines. Providers should exercise clinical judgement when providing care. Contact your emergency department Director Check for further assistance. Primary Care Physician: Lucas Figueroa. Please contact pt’s PCP and/or specialty providers for additional information on chronic conditions. Past Medical History: Asthma, Chronic Kidney Disease, GERD, MRSA Past Surgical History: Renal Biopsy Problem List: Educate patient regarding the proper use of the Emergency Room. Redirect patient to him/her PCP for care that does not require the use of the Emergency Department. Please contact your facility’s Case Management department if further intervention is needed in the care of this patient. It may be appropriate for this patient to seek care at an Urgent Care Center instead of the Emergency Room, please offer this alternate plan to the patient and provide list of Urgent Care Clinics. Substance Abuse: None Mental Health: None Pain/Opioid Agreement: Please use the [facility] Prescription Monitoring Program for specifics related to pt’s use of narcotics medications. [email or web address] 05/11/2017 [facility] Recommendation: Reason for establishing care guidelines: this patient has been identified as having at least 5 Emergency Department visits in [facility] in the 12 months immediately preceding the date these guidelines were entered. This care plan reflects only preliminary care guidelines. Providers should exercise clinical judgement when providing care. Contact your emergency department Director Check for further assistance. Primary Care Physician: Lucas Figueroa. Please contact pt’s PCP and/or specialty providers for additional information on chronic conditions. Past Medical History: Asthma, Chronic Kidney Disease, GERD, MRSA Past Surgical History: Renal Biopsy Problem List: Educate patient regarding the proper use of the Emergency Room. Redirect patient to him/her PCP for care that does not require the use of the Emergency Department. Please contact your facility’s Case Management department if further intervention is needed in the care of this patient. It may be appropriate for this patient to seek care at an Urgent Care Center instead of the Emergency Room, please offer this alternate plan to the patient and provide list of Urgent Care Clinics. Substance Abuse: None Mental Health: None Pain/Opioid Agreement: Please use the [facility] Prescription Monitoring Program for specifics related to pt’s use of narcotics medications. https://CBRITE.Sypherlink.gov E.D. VISIT COUNT (12 MO.) 8 [facility]. Mary CharlyJosr (Shayne Bella) TOTAL 12 NOTE: Visits indicate total known visits. ED/UCC VISIT TRACKING (12 MO.) 07/23/2023 22:31 [facility] [place] TYPE: Emergency COMPLAINT: - BACK PAIN 06/30/2023 15:32 [facility] [place] TYPE: Emergency COMPLAINT: - FLANK PAIN DIAGNOSES: - Allergy status to narcotic agent - Low back pain, unspecified - Nicotine dependence, unspecified, uncomplicated - Personal history of urinary (tract) infections [facility]23 [facility] Emergency DIAGNOSES: - Pilonidal cyst without abscess - Unspecified asthma, uncomplicated - Cyst - cyst, needs inhaler rx also - Medication Refill 05/27/2023 20:45 [facility] [place] TYPE: Emergency COMPLAINT: - POSS ASTHMA ATTACK DIAGNOSES: - Allergy status to narcotic agent - Nicotine dependence, unspecified, uncomplicated - Other senior living (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 - Shortness of breath - Unspecified asthma with (acute) exacerbation 04/29/2023 20:51 [facility] [place] TYPE: Emergency COMPLAINT: - BODYACHE DIAGNOSES: - Allergy status to narcotic agent - Headache, unspecified - Nicotine dependence, unspecified, uncomplicated - 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 tank terminal gauger (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 - Unspecified asthma, uncomplicated - Viral infection, unspecified 02/23/2023 11:11 [facility] Shayne [facility] ([place]) TYPE: Emergency DIAGNOSES: - Pilonidal cyst with abscess - Back Pain - lower back pain, - lower back pain, cyst 02/20/2023 17:30 [facility] TYPE: Emergency COMPLAINT: - SKIN PROBLEM DIAGNOSES: - Allergy status to narcotic agent - Nicotine dependence, unspecified, uncomplicated - Other tank terminal gauger (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 - Pilonidal cyst without abscess - Unspecified asthma, uncomplicated 11/27/2022 17:02 [facility] Shayne MABRY ([place]) TYPE: Emergency DIAGNOSES: - Pilonidal sinus with abscess - Abscess (Complicated) - cyst 11/21/2022 03:12 [facility] Shayne M[facility]RY ([place]) TYPE: Emergency DIAGNOSES: - Acute gastritis with bleeding - Emesis - vomiting, blood in vomit 09/28/2022 22:17 [facility] [place] TYPE: Emergency COMPLAINT: - EAR PAIN DIAGNOSES: - Acute Eustachian salpingitis, bilateral - Allergy status to narcotic agent - Nausea - Nicotine dependence, unspecified, uncomplicated - Other senior living (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 - Unspecified asthma, uncomplicated 09/28/2022 12:[address] [facility] [place] TYPE: Emergency COMPLAINT: - EAR PAIN/PROBLEM 08/21/2022 20:48 [facility] [place] TYPE: Emergency COMPLAINT: - BODY ACHES, FLU SYMPTOMS DIAGNOSES: - Acute pharyngitis, unspecified - Allergy status to analgesic agent - Allergy status to narcotic agent - Contact with and (suspected) exposure to COVID-19 - Nicotine dependence, unspecified, uncomplicated - Other tank terminal gauger (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 - Unspecified asthma, uncomplicated - Viral infection, unspecified INPATIENT VISIT TRACKING (12 MO.) No inpatient visits to display in this time frame [email or web address]
[2023-07-24] MEDS ORDERED: TRAMADOL HCL50 MG PO (00:54)
[2023-07-24 01:21] VITALS: BP 129/88
== END 2023-07-24 01:20 | disposition home or self-care (01) ==
LOC: ED 22:31
DX: S23.41XA Sprain of ribs, initial encounter (principal); X58.XXXA Exposure to other specified factors, initial encounter; F17.200 Nicotine dependence, unspecified, uncomplicated; Z79.51 Long term (current) use of inhaled steroids; J45.909 Unspecified asthma, uncomplicated
CPT/HCPCS: 71101; 96372; 99283-25; A9270; J1885; J3360

== ENCOUNTER 2023-10-30 22:49 | Emergency (ER) | payer OTHER ==
[~2023-10-30] VITALS: Ht 177.8 cm; Wt 86.7 kg
[~2023-10-30 22:49] MED LIST changes: +TRAMADOL HCL50 MG PO
[2023-10-30 23:25] LABS: EOSINOPHILS 0.7 % (0-6); HEMATOCRIT 47.1 % (35.0-50.0)
[2023-10-30 23:29] LABS: BASOPHILS 0.4 % (0-2); HEMOGLOBIN 15.9 g/dL (12.0-18.0); LYMPHOCYTES 5.8 % (24-44); MCH 30.7 (27-36); MCHC 33.7 g/dl (30-36); MONOCYTES 6.8 % (0-12); NEUTROPHILS 86.3 % (39-80); PLATELET COUNT 272 K/uL (140-440); RBC 5.17 M/ul (4.3-5.7); RDW 13.3 (10.5-15.0)
[2023-10-30 23:41] LABS: ANION GAP 16.6 (7-21); BUN/CREATININE RATIO 9.25 (6.0-28.6); CALCIUM 9.6 mg/dL (8.5-10.1); CREATININE, SERUM 1.08 mg/dL (0.70-1.30); POTASSIUM 3.6 mmol/L (3.5-5.1)
[2023-10-30 23:55] LABS: INFLUENZA B NAA NEGATIVE (NEGATIVE); RESPIRATORY SYNCYTIAL VIR NAA NEGATIVE (NEGATIVE)
[2023-10-31] MEDS ORDERED: TAMIFLU75 MG PO (00:06)
[2023-10-31] MEDS ORDERED: CYCLOBENZAPRINE10 MG PO (00:06)
[2023-10-31 00:20] VITALS: BP 118/78
== END 2023-10-31 00:20 | disposition home or self-care (01) ==
LOC: ED 22:49
PROVIDERS: Family Medicine
DX: J10.1 Influenza due to other identified influenza virus with other respiratory manifestations (principal); J45.909 Unspecified asthma, uncomplicated; F17.200 Nicotine dependence, unspecified, uncomplicated; Z11.52 Encounter for screening for COVID-19; Z88.5 Allergy status to narcotic agent
CPT/HCPCS: 36415; 71045; 80048; 85025; 87502; 94640; 96372; 99284-25; J1885; U0002

== ENCOUNTER 2024-02-23 15:10 | Emergency (ER) | payer OTHER ==
[~2024-02-23] VITALS: Ht 177.8 cm; Wt 88.8 kg
[~2024-02-23 15:10] MED LIST changes: +TAMIFLU75 MG PO
[2024-02-23] MEDS ORDERED: KETOROLAC TROMETHAMINE 60 MG/2 ML VIAL IM ONE (19:45)
[2024-02-23] MEDS ORDERED: TRAMADOL HCL 50 MG HOME.PACK PO ONE (19:45)
[2024-02-23] MEDS ORDERED: diazePAM 10 MG/2 ML SYR IM ONE (19:45)
[2024-02-23] MEDS ORDERED: methylPREDNISolone 4 MG HOME.PACK PO ONE (19:45)
[2024-02-23 20:19] VITALS: BP 119/87
== END 2024-02-23 20:19 | disposition home or self-care (01) ==
LOC: ED 15:10
DX: S29.012A Strain of muscle and tendon of back wall of thorax, initial encounter (principal); F17.200 Nicotine dependence, unspecified, uncomplicated; X58.XXXA Exposure to other specified factors, initial encounter; Z88.5 Allergy status to narcotic agent
CPT/HCPCS: 71045; 73030; 96372; 99283-25; A9270; J1885; J3360

== ENCOUNTER 2024-12-05 18:36 | Emergency (ER) | payer OTHER ==
[~2024-12-05] VITALS: Ht 177.8 cm; Wt 94.8 kg
[~2024-12-05 18:36] MED LIST changes: +ONDANSETRON ODT8 MG PO; +PROTONIX20 MG PO
[2024-12-05] MEDS ORDERED: ADVAIR 500-501 EACH INH (18:53)
[2024-12-05] MEDS ORDERED: VENTOLIN HFA18 GM INH (19:10)
[2024-12-05] MEDS ORDERED: ADVAIR 250-501 EACH INH (19:10)
[2024-12-05] MEDS ORDERED: INHALER, ASSIST DEVICES 1 EACH SPACER MISC ONE (19:15)
[2024-12-05] MEDS ORDERED: ALBUTEROL SULFATE 8 GM HOME.PACK INH ONE (19:15)
[2024-12-05 19:25] VITALS: BP 135/79
== END 2024-12-05 19:25 | disposition home or self-care (01) ==
LOC: ED 18:36
DX: Z76.0 Encounter for issue of repeat prescription (principal); J45.909 Unspecified asthma, uncomplicated; F17.200 Nicotine dependence, unspecified, uncomplicated; Z88.5 Allergy status to narcotic agent; Z79.899 Other long term (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
CPT/HCPCS: 99282

== ENCOUNTER 2024-12-21 21:25 | Emergency (ER) | payer OTHER ==
[~2024-12-21] VITALS: Ht 177.8 cm; Wt 97.0 kg
[~2024-12-21 21:25] MED LIST changes: +ADVAIR 250-501 EACH INH; +ADVAIR 500-501 EACH INH
[2024-12-21] MEDS ORDERED: AZITHROMYCIN250 MG PO (21:39)
[2024-12-21] MEDS ORDERED: OXYCODONE/APAP 5/325 TAB PO ONE (22:00)
[2024-12-21] MEDS ORDERED: KETOROLAC TROMETHAMINE 60 MG/2 ML VIAL IM ONE (22:00)
[2024-12-21] MEDS ORDERED: HYDROCODON-ACE1 EA10 PO (22:20)
[2024-12-21] MEDS ORDERED: HYDROCODONE BIT/ACETAMINOPHEN 5/325 MG 1 TAB HOME.PACK PO ONE (22:30)
[2024-12-21 22:36] VITALS: BP 126/83
== END 2024-12-21 22:36 | disposition home or self-care (01) ==
LOC: ED 21:25
DX: K08.89 Other specified disorders of teeth and supporting structures (principal); J45.909 Unspecified asthma, uncomplicated; K21.9 Gastro-esophageal reflux disease without esophagitis; F17.200 Nicotine dependence, unspecified, uncomplicated; Z88.5 Allergy status to narcotic agent; Z79.51 Long term (current) use of inhaled steroids
CPT/HCPCS: 96372; 99282; A9270; J1885

== ENCOUNTER 2025-01-14 17:45 | Emergency (ER) | payer OTHER ==
[~2025-01-14] VITALS: Ht 177.8 cm; Wt 90.9 kg
[~2025-01-14 17:45] MED LIST changes: +AZITHROMYCIN250 MG PO
[2025-01-14] MEDS ORDERED: SODIUM CHLORIDE 0.9% 1,000 ML IV ONE (19:30)
[2025-01-14] MEDS ORDERED: ondansetron HCL 4 MG/2 ML VIAL IV ONE (19:30)
[2025-01-14] MEDS ORDERED: fentaNYL citrate 100 MCG/2 ML VIAL IV ONE (19:30)
[2025-01-14 19:37] LABS: BASOPHILS 0.3 % (0-2); EOSINOPHILS 0.6 % (0-6); HEMATOCRIT 46.8 % (35.0-50.0); HEMOGLOBIN 16.2 g/dL (12.0-18.0); LYMPHOCYTES 4.7 % (24-44); MCH 31.1 (27-36); MCHC 34.7 g/dl (30-36); MCV 89.6 fl (81-99); MONOCYTES 3.3 % (0-12); NEUTROPHILS 91.1 % (39-80); PLATELET COUNT 304 K/uL (140-440); RBC 5.23 M/ul (4.3-5.7); RDW 13.5 (10.5-15.0)
[2025-01-14 19:53] LABS: ALBUMIN 3.9 g/dL (3.4-5.0); ALBUMIN/GLOBULIN RATIO 1.26 (1.1-2.4); BILIRUBIN, TOTAL 0.7 mg/dL (0.2-1.0); BUN/CREATININE RATIO 10.41 (6.0-28.6); CREATININE, SERUM 0.96 mg/dL (0.70-1.30)
[2025-01-14 20:44] LABS: CORONAVIRUS COVID-19 AG NEGATIVE (NEGATIVE); INFLUENZA A AG NEGATIVE (NEGATIVE); INFLUENZA B AG NEGATIVE (NEGATIVE)
[2025-01-14 21:12] LABS: BILIRUBIN, URINE NEGATIVE (negative); BLOOD/HGB, URINE NEGATIVE (Negative); KETONE, URINE TRACE (Negative); LEUK ESTERASE, URINE NEGATIVE (negative); NITRITE, URINE NEGATIVE (negative)
[2025-01-14] MEDS ORDERED: CARAFATE1 GM PO (21:54)
[2025-01-14] MEDS ORDERED: ONDANSETRON ODT8 MG PO (21:54)
[2025-01-14] MEDS ORDERED: PROTONIX40 MG PO (21:54)
[2025-01-14] MEDS ORDERED: SUCRALFATE 1 GM TAB PO ONE (22:00)
[2025-01-14] MEDS ORDERED: LIDOCAINE & ANTACID 35 ML BTL PO ONE (22:00)
[2025-01-14] MEDS ORDERED: ONDANSETRON 4 MG HOME.PACK SL ONE (22:15)
[2025-01-14 22:21] VITALS: BP 124/83
== END 2025-01-14 22:21 | disposition home or self-care (01) ==
LOC: ED 17:45
PROVIDERS: Family Medicine
DX: K29.70 Gastritis, unspecified, without bleeding (principal); J45.909 Unspecified asthma, uncomplicated; F17.200 Nicotine dependence, unspecified, uncomplicated; Z88.5 Allergy status to narcotic agent; Z91.048 Other nonmedicinal substance allergy status; Z79.51 Long term (current) use of inhaled steroids; Z79.899 Other long term (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
CPT/HCPCS: 36415; 80053; 81003; 83690; 85025; 87502; 96361; 96374; 96375; 99284-25; A9270; J2405; J3010; J7030; U0002

== ENCOUNTER 2025-04-20 08:33 | Emergency (ER) | payer OTHER ==
[~2025-04-20] VITALS: Ht 177.8 cm; Wt 90.9 kg
[~2025-04-20 08:33] MED LIST changes: +CARAFATE1 GM PO; +PROTONIX40 MG PO
[2025-04-20] MEDS ORDERED: predniSONE 20 MG TAB PO ONE (10:15)
[2025-04-20] MEDS ORDERED: PREDNISONE20 MG PO (10:32)
[2025-04-20 10:41] VITALS: BP 119/78
== END 2025-04-20 10:41 | disposition home or self-care (01) ==
LOC: ED 08:33
DX: M25.511 Pain in right shoulder (principal); J45.909 Unspecified asthma, uncomplicated; F17.200 Nicotine dependence, unspecified, uncomplicated; Z88.5 Allergy status to narcotic agent; Z88.8 Allergy status to other drugs, medicaments and biological substances; Z79.899 Other long term (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
CPT/HCPCS: 73030; 99283; J7512

== ENCOUNTER 2025-07-24 18:17 | Emergency (ER) | payer OTHER ==
[~2025-07-24] VITALS: Ht 177.8 cm; Wt 96.2 kg
[2025-07-24] MEDS ORDERED: FAMOTIDINE10 MG PO (20:41)
[2025-07-24] MEDS ORDERED: TRAMADOL HCL 50 MG HOME.PACK PO ONE (21:45)
[2025-07-24] MEDS ORDERED: AMOXICILLIN/CLAVULANATE K 875 MG HOME.PACK PO ONE (21:45)
[2025-07-24 22:07] VITALS: BP 134/96
== END 2025-07-24 22:07 | disposition home or self-care (01) ==
LOC: ED 18:17
DX: K04.7 Periapical abscess without sinus (principal); J45.909 Unspecified asthma, uncomplicated; F17.200 Nicotine dependence, unspecified, uncomplicated; Z88.5 Allergy status to narcotic agent; Z91.048 Other nonmedicinal substance allergy status; Z79.899 Other long term (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
CPT/HCPCS: 99282; A9270